=== PATIENT | male | born 1990 | race Caucasian/White ===

== ENCOUNTER 2016-12-22 15:20 | Emergency (ER) | payer OTHER ==
[~2016-12-22] VITALS: Ht 157.5 cm; Wt 31.8 kg
[2016-12-22 15:30] VITALS: BP 117/57
--- NOTE | 2016-12-22 17:19 | NUR ---
PT BIB MOTHER FOR EVALUATION OF CONGESTION SINCE TIS AM. HX CEREBRAL PALSY. DENIES N/V/D; SKIN IS PINK/WARM/DRY; AAOX4 WITH EVEN AND STEADY GAIT; LUNGS CLEAR BL; HR EVEN AND REGULAR; PT DENIES ANY FEVER, CP, OR SOB AT THIS TIME; PATIENT STATES PAIN OF 0/10 AT THIS TIME; VSS; PATIENT POSITIONED FOR COMFORT; HOB ELEVATED; BEDRAILS UP X2; BED DOWN. ER MD MADE AWARE OF PT STATUS.
--- NOTE | 2016-12-22 17:20 | NUR ---
PATIENT TAKEN TO BED#5 BY STAFF/MOTHER
--- NOTE | 2016-12-22 17:30 | NUR ---
DR MUKHERJEE AT BEDSIDE.
--- NOTE | 2016-12-22 17:47 | NUR ---
Patient discharged with v/s stable. Written and verbal after care instructions given and explained to mother. Mother verbalized understanding of instructions. Wheel Chair Assisted with by parent. All questions addressed prior to discharge. ID band removed.Mother advised to follow up with PMD. Opportunity to ask questions provided and answered.
[2016-12-22 17:48] VITALS: BP 117/57
== END 2016-12-22 17:47 | disposition home or self-care (01) ==
LOC: MED 15:20
DX: Z00.00 Encounter for general adult medical examination without abnormal findings (principal)
CPT/HCPCS: 71010; 99283

== ENCOUNTER 2017-03-13 05:12 | Emergency (ER) | payer OTHER ==
[~2017-03-13] VITALS: Ht 165.1 cm; Wt 40.8 kg
--- NOTE | 2017-03-13 05:12 | NUR ---
0506- PT MICHELLE ALS. TAKEN TO BED 10
[2017-03-13 05:14] VITALS: BP 85/58
--- NOTE | 2017-03-13 05:14 | NUR ---
Dr. Rain evaluating patient at bedside.
--- NOTE | 2017-03-13 05:14 | NUR ---
Respiratory Therapist at bedside for respiratory intervention.
--- NOTE | 2017-03-13 05:19 | NUR ---
PT BIBA BAGGED WITH 100% FI02, PLACED ON VENT AC, VT 300, PEEP+5, FI02 28%. NO RESP DISTRESS NOTED. SXN SML AMT OF THIN CREAM SECRETIONS FOR C/S. PT WITH PORTEX 7 TRACH, SECURED, PATENT.
[2017-03-13] MEDS ORDERED: NACL 0.9% 2,000 ML IV ONE (05:25)
--- NOTE | 2017-03-13 05:30 | NUR ---
26Y/M BIBA S/P SEIZURE. HX SEIZURES. PER EMR PT CAME FROM [facility] HAD 10 MIN UNWITNESSED SEIZURE. PT HAS TRACH AND IS ON VENT. PT HAS G TUBE. PER EMR FACILITY GAVE ATIVAN. PT APPEARS TO BE IN NO APPARENT DISTRESS AT THIS TIME, VSS, PT IN BED, ER MD AWARE OF PT STATUS. SKIN INTACT, SUSPECTED DEEP TISSUE INJURY TO SACRAL AREA PHOTO TAKEN.
[2017-03-13] MEDS ORDERED: MIDO10TA PEG (05:48)
[2017-03-13] MEDS ORDERED: LEVE1000 PEG (05:48)
[2017-03-13 05:51] LABS: BASOPHILS # (AUTO) 0.1 K/uL (0.00-0.22); BASOPHILS % (AUTO) 1.1 % (0.0-2.0); EOSINOPHILS # (AUTO) 0.1 K/uL (0-0.4); EOSINOPHILS % (AUTO) 1.6 % (0.0-4.0); HEMOGLOBIN 8.8 g/dL (12.0-18.0); LYMPHOCYTES # (AUTO) 0.9 K/uL (2.0-11.5); LYMPHOCYTES % (AUTO) 10.8 % (20.5-51.1); MEAN CORPUSCULAR HEMOGLOBIN 33 pg (27-31); MEAN CORPUSCULAR HGB CONC 33 g/dL (33-37); MEAN CORPUSCULAR VOLUME 100 fL (80-94); MONOCYTES # (AUTO) 0.8 K/uL (0.8-1.0); MONOCYTES % (AUTO) 8.9 % (1.7-9.3); NEUTROPHILS # (AUTO) 6.7 K/uL (1.8-7.7); NEUTROPHILS % (AUTO) 77.6 % (42.2-75.2); PLATELET COUNT (AUTO) 340 K/uL (140-450); RED BLOOD CELL COUNT(AUTO) 2.69 MIL/uL (4.20-6.10); WHITE BLOOD COUNT (AUTO) 8.6 K/uL (4.8-10.8)
[2017-03-13] MEDS ORDERED: ATI.5 PEG (05:59)
[2017-03-13] MEDS ORDERED: [UNRECOGNIZED DRUG - CODE] PO (05:59)
[2017-03-13] MEDS ORDERED: ASCO500T45 PEG (05:59)
[2017-03-13] MEDS ORDERED: VALP-22 PEG (05:59)
[2017-03-13] MEDS ORDERED: LOV40I SUBQ (05:59)
[2017-03-13] MEDS ORDERED: LANS15EC28 PEG (05:59)
[2017-03-13] MEDS ORDERED: DOCU-299 PEG (05:59)
[2017-03-13 06:10] LABS: ANION GAP 6.6 (8-16); CARBON DIOXIDE 34.4 mmol/L (21-32); CREATININE 0.6 mg/dL (0.7-1.3)
[2017-03-13 06:17] LABS: ALBUMIN 2.9 g/dL (3.4-5.0); TOTAL BILIRUBIN 0.2 mg/dL (0.0-1.0)
--- NOTE | 2017-03-13 06:27 | NUR ---
DR. NAGEL SPEAKING WITH FAMILY AT BEDSIDE
[2017-03-13 06:40] VITALS: BP 91/54
--- NOTE | 2017-03-13 06:40 | NUR ---
rec'd pt on carescape vent settings ac 10 vt 300 peep 5 fio2 28% alarms on and functioning properly, ambu bag at side of vent and vent is plugged into red outlet, b\s are coarse bilaterally, sxn pt small amt of thin cream color secretions, pt is trach with portex 7 and cuff pressure is 26 cm h20 and pt is sleeping with no signs of distress noted at this time family at bedside
--- NOTE | 2017-03-13 06:54 | NUR ---
PER FAMILY PT HAS 1-3 SEIZURES A DAY.
--- NOTE | 2017-03-13 07:10 | NUR ---
REPORT CALLED TO FACILITY THAT PT WILL BE D/C BACK W/ [facility] TRANSPORT ETA 30-45 MIN.
--- NOTE | 2017-03-13 07:19 | NUR ---
Pt report given to TREY. Transfer of care at this time.
--- NOTE | 2017-03-13 07:51 | NUR ---
PT TRANSFERRED TO [facility] VIA GURNEY BY EMS, VSS, REPORT GIVEN TO CHADWICK ADAMS FROM EMR, REPORTED TO FACITILY DONE BY CHADWICK PADRON
[2017-03-13 07:53] VITALS: BP 95/58
[2017-03-13 08:12] LABS: BILIRUBIN,URINE NEGATIVE (NEGATIVE); BLOOD, URINE NEGATIVE (NEGATIVE); COLOR,URINE YELLOW (YELLOW); LEUKOCYTE ESTERASE ,URINE NEGATIVE (NEGATIVE); NITRITE, URINE NEGATIVE (NEGATIVE); PH,URINE 6.5 (5.0-9.0); UGLUCOSE NEGATIVE (NEGATIVE)
[2017-03-13 08:21] LABS: APPEARANCE,URINE SLIGHTLY HAZY (CLEAR)
[2017-03-13 08:22] LABS: RBC,URINE NONE SEEN /HPF (0-5); WBC,URINE 0-5 (RARE) /HPF (0-5)
== END 2017-03-13 07:51 ==
LOC: MED 05:12
DX: R56.9 Unspecified convulsions (principal); G80.9 Cerebral palsy, unspecified; F79 Unspecified intellectual disabilities; Z93.0 Tracheostomy status; Z93.1 Gastrostomy status; Z79.899 Other long term (current) drug therapy; Z88.8 Allergy status to other drugs, medicaments and biological substances
CPT/HCPCS: 36415; 71010; 80053; 81001; 83605; 85025; 87040; 89220; 93005; 96360; 99285; Q0092

== ENCOUNTER 2017-12-23 21:03 | Inpatient (IN) | payer OTHER ==
[~2017-12-23] VITALS: Ht 157.5 cm; Wt 38.6 kg
[~2017-12-23 21:03] MED LIST: ASCO500T45 PEG; ATI.5 PEG; DOCU-299 PEG; LANS15EC28 PEG; LEVE1000 PEG; LOV40I SUBQ; MIDO10TA PEG; VALP-22 PEG; [UNRECOGNIZED DRUG - CODE] PO
[2017-12-23 21:33] VITALS: BP 106/52
--- NOTE | 2017-12-23 21:36 | NUR ---
TO LOBBY VIA W/C, A/W BED, MANUELA FOX NOTED
[2017-12-23 22:35] LABS: HEMOGLOBIN 16.2 g/dL (12.0-18.0); MEAN CORPUSCULAR HEMOGLOBIN 34 pg (27-31); MEAN CORPUSCULAR HGB CONC 33 g/dL (33-37); MEAN CORPUSCULAR VOLUME 102.4 fL (80-94); RED BLOOD CELL COUNT(AUTO) 4.79 MIL/uL (4.20-6.10); WHITE BLOOD COUNT (AUTO) 19.5 K/uL (4.8-10.8)
[2017-12-23 22:36] LABS: ALBUMIN 3.3 g/dL (3.4-5.0); ANION GAP 11.8 (8-16); CARBON DIOXIDE 28.7 mmol/L (21-32); CREATININE 0.8 mg/dL (0.7-1.3); PLATELET COUNT (AUTO) 174 K/uL (140-450); POTASSIUM 3.5 mmol/L (3.5-5.1); RED CELL DISTRIBUTION WIDTH 15.2 % (11.6-13.7); TOTAL BILIRUBIN 0.5 mg/dL (0.0-1.0)
[2017-12-23 22:37] LABS: LYMPHOCYTES % (MANUAL) 11 % (20-46); MONOCYTES % (MANUAL) 8 % (5-12)
--- NOTE | 2017-12-23 23:35 | NUR ---
27 yo male with C/O abdominal pain today. Family reports patient has been acting different since last Wednesday. Pt without fever. Pt with vomiting. Pt without diarrhea. Pt without chest pain. SKIN IS INTACT, PINK/WARM/DRY; AAOX4, PERRL, WITH EVEN AND STEADY GAIT; LUNGS CLEAR BL, BREATHING UNLABORED; HR EVEN AND REGULAR, BL PERIPHERAL PULSES PRESENT; BS ACTIVE X4, NO TENDERNESS TO PALPATION, NO HEPATOSPLENOMEGALLY PALPATED, RESONANT TO PERCUSSION; PT DENIES ANY FEVER, CP, SOB, OR COUGH AT THIS TIME; PT STATES 5/10 PAIN AT THIS TIME; VSS; PATIENT POSITIONED FOR COMFORT; HOB ELEVATED; BEDRAILS UP X2; BED DOWN.
--- NOTE | 2017-12-23 23:35 | NUR ---
PATIENT TO ER BED 5.
--- NOTE | 2017-12-23 23:40 | NUR ---
PT HAS G-TUBE IN PLACE, PATENT AND INTACT
--- NOTE | 2017-12-23 23:41 | NUR ---
DR. FERMIN MADE AWARE OF PTS CURRENT STATUS
--- NOTE | 2017-12-24 00:30 | NUR ---
PT RESTING COMFORTABLY IN BED. NO S/S OF DISTRESS NOTED
[2017-12-24] MEDS ORDERED: NACL 0.9% 1,000 ML IV ONE (01:30)
[2017-12-24] MEDS ORDERED: KETOROLAC 30 MG/ML VIAL IVP ONE (02:30)
--- NOTE | 2017-12-24 02:30 | NUR ---
PT RESTING COMFORTABLY IN BED. NO S/S OF DISTRESS NOTED
[2017-12-24] MEDS: NACL 0.9% 1,000 ML IV SCH ×3 (03:08→20:38)
[2017-12-24] MEDS ORDERED: HYDROcodone/APAP 5/325 MG 1 TAB TAB PO PRN (03:10)
[2017-12-24] MEDS ORDERED: DOCUSATE SODIUM 100 MG GELCAP PO PRN (03:10)
[2017-12-24] MEDS ORDERED: ACETAMINOPHEN 325 MG TAB PO PRN (03:10)
[2017-12-24] MEDS ORDERED: ONDANSETRON 4 MG/2 ML VIAL IM/IVP PRN (03:10)
--- NOTE | 2017-12-24 03:26 | NUR ---
DR. MCKEON AT BEDSIDE EVALUATING
[2017-12-24 03:40] VITALS: BP 111/64
[2017-12-24] MEDS ORDERED: DOCUSATE 100 MG/10 ML UDC GT PRN (03:40)
[2017-12-24] MEDS ORDERED: HYDROcodone/APAP 5/325 MG 1 TAB TAB GT PRN (03:40)
[2017-12-24] MEDS ORDERED: LORazepam 2 MG/ML VIAL IVP PRN (03:40)
--- NOTE | 2017-12-24 03:40 | NUR ---
RECEIVED BEDSIDE REPORT FROM FISH HOUSEKEEPER RN, IV IN LEFT HAND 24 G, PATENT AND INTACT. STARTED 1/2 NS AT 150 ML/HR. G-TUBE RESIDUALS AT 175, DR MCKEON AWARE, WILL HOLD TUBE FEEDING, ALL SAFETY PRECAUTIONS MET, V/S TAKEN ALL WITHIN BASELINE, WILL CONTINUE TO MONITOR.
[2017-12-24] MEDS ORDERED: RANI15SY PO (03:48)
[2017-12-24] MEDS ORDERED: KEP500L GT (03:48)
[2017-12-24] MEDS ORDERED: VALP-22 PEG (03:48)
--- NOTE | 2017-12-24 04:00 | NUR ---
Patient will be admitted to care of DR. PARKER. Admited to TELE. Will go to room 106B. Belongings list completed. Report to TONJA GENAO.
[2017-12-24 04:13] LABS: MAGNESIUM 1.6 mg/dL (1.8-2.4)
--- NOTE | 2017-12-24 07:25 | NUR ---
ENDORSED PT TO DAY SHIFT NURSE PT STABLE.
--- NOTE | 2017-12-24 07:26 | NUR ---
RECEIVED BEDSIDE REPORT FROM RECORDS MANAGEMENT DIRECTOR NURSE. PATIENT IS SLEEPING. NO SIGNS OF DISTRESS ON ROOM AIR. PATIENT IS APHASIC. PATIENT IS BEDBOUND. HE HAS A SCRATCH ON HIS L EAR. GTUBE IN PLACE, NO FEEDING D/T RECORDS MANAGEMENT DIRECTOR RESIDUAL OF 175ML, GTUBE IS CLEAN, DRY AND INTACT. TELE MONITOR IN PLACE. L HAND 24G INFUSING NS AT 150. CLEAN, DRY AND INTACT. ALLERGY BAND IN PLACE. SEIZURE PRECAUTIONS, FALL PRECAUTIONS, AND ASP PRECAUTIONS. BED IN LOW POSITION. CALL LIGHT WITHIN REACH. WILL CONTINUE TO MONITOR THE PATIENT
--- NOTE | 2017-12-24 07:50 | NUR ---
COSTUMER ASSISTANT AT BEDSIDE. HELPED HER ASSIST THE PATIENT IN TURNING. WILL CONTINUE TO MONITOR
[2017-12-24 08:00] VITALS: BP 115/71
--- NOTE | 2017-12-24 08:38 | NUR ---
PATIENT HAS BEEN SCREENED AND CATEGORIZED HIGH NUTRITION RISK. PATIENT WILL BE SEEN WITHIN 1-2 DAYS OF ADMISSION. 12/24/17 12/25/[address]
[2017-12-24] MEDS ORDERED: RANITIDINE HCL GT SCH (09:00)
[2017-12-24] MEDS: PIPER/TAZO 3.375GM/D5W PREMIX 50 ML IV SCH ×3 (09:03→19:15)
[2017-12-24] MEDS: levETIRAcetam 100 MG/ML ORASYR GT SCH ×2 (09:05→20:21)
[2017-12-24] MEDS: VALPROIC ACID 250 MG/5 ML UDC PEG SCH ×2 (09:06→20:21)
[2017-12-24] MEDS: LACTOBACILLUS RHAMNOSUS GG 1 EACH CAP PO SCH (09:06)
[2017-12-24] MEDS: ASCORBIC ACID 500 MG/5 ML ORASYR PEG SCH (09:14)
[2017-12-24] MEDS: FAMOTIDINE 20 MG TAB PO SCH ×2 (09:14→20:20)
[2017-12-24] MEDS: KETOROLAC 15 MG/ML VIAL IVP PRN (09:15)
--- NOTE | 2017-12-24 09:20 | NUR ---
ADMINISTERED MEDS. PATIENT TOLERATED WELL. WILL CONTINUE TO MONITOR THE PATIENT. BED IN LOW POSITION, BED ALARM IS ON. PATIENT HAS A FLACC 2. ADMINISTERED PRN PAIN MED.
--- NOTE | 2017-12-24 11:12 | NUR ---
PATIENT IS SLEEPING. NO SIGNS OF DISTRESS. WILL CONTINUE TO MONITOR THE PATIENT
--- NOTE | 2017-12-24 11:28 | NUR ---
CM NOTE INITIAL REVIEW FAXED TO [facility] [phone] # [phone]
[2017-12-24 12:00] VITALS: BP 122/68
--- NOTE | 2017-12-24 12:20 | NUR ---
ADMINISTERED MEDS AND IVF. PATIENT TOLERATING WELL. IV IS CLEAN, DRY AND INTACT. NO SIGNS OF DISTRESS ON ROOM AIR. WILL CONTINUE TO MONITOR THE PATIENT
[2017-12-24 13:22] LABS: CHOL/HDL RATIO 3.3 (1-4.5)
[2017-12-24 13:30] LABS: PHOSPHORUS 3.9 mg/dL (2.5-4.9); THYROID STIMULATING HORMONE 1.16 uIU/mL (0.34-3.74)
[2017-12-24 13:33] LABS: PROTHROMBIN TIME 12.8 secs (10.8-13.4)
--- NOTE | 2017-12-24 14:03 | NUR ---
PATIENT IS SLEEPING. NO SIGNS OF DISTRESS. WILL CONTINUE TO MONITOR THE PATIENT
[2017-12-24 14:15] LABS: APPEARANCE,URINE CLEAR (CLEAR); BILIRUBIN,URINE NEGATIVE (NEGATIVE); BLOOD, URINE NEGATIVE (NEGATIVE); COLOR,URINE YELLOW (YELLOW); LEUKOCYTE ESTERASE ,URINE NEGATIVE (NEGATIVE); NITRITE, URINE NEGATIVE (NEGATIVE); PH,URINE 6.5 (5.0-9.0); UGLUCOSE NEGATIVE (NEGATIVE)
[2017-12-24 14:32] LABS: BARBITURATE, URINE NEG. ng/ml (NEG <=200); BENZODIAZEPINE, URINE NEG. ng/mL (NEG <=200); CANNABINOID, URINE NEG. ng/mL (NEG <=50); COCAINE, URINE NEG. ng/mL (NEG <=300); OPIATE, URINE NEG. ng/mL (NEG <=2000); PHENCYCLIDINE SCREEN,URINE NEG. ng/mL (NEG <=25)
--- NOTE | 2017-12-24 15:04 | NUR ---
12/24/17 RD INITIAL ASSESSMENT COMPLETED PLEASE REFER TO NUTRITION ASSESSMENT UNDER CARE ACTIVITY FOR ESTIMATED NUTRITIONAL NEEDS. 1. CONTINUE NPO MEDICALLY APPROPRIATE 2. IF/WHEN PATIENT IS MEDICALLY STABLE CONSIDER IMPLEMENTING TUBE FEEDING WITH JEVITY @50 ML/HR GOAL RATE. FREE WATER FLUSH 80 ML Q4H. -THIS WILL PROVIDE 1200 ML IN VOLUME, 1440 KCAL, AND 100 GM OF PROTEIN, WHICH MEETS 100% OF ESTIMATED KCAL AND PROTEIN NEEDS. 3. RD TO FOLLOW-UP 2-3 DAYS, HIGH RISK ALFA SAENZ RD
--- NOTE | 2017-12-24 15:41 | NUR ---
PATIENT SCRATCHED SIDE OF HIS NOSE. DRY BLOOD IS NOTED. EDUCATED THE PATIENT ON THE IMPORTANCE OF NOT SCRATCHING. PATIENT UNABLE TO VERBALIZED UNDERSTANDING. HE IS APHASIC
[2017-12-24] MEDS ORDERED: MAG SULF 2000 MG/WATER PREMIX 50 ML IV ONE (15:45)
[2017-12-24 16:00] VITALS: BP 113/72
[2017-12-24] MEDS: MAGNESIUM SULFATE 1GM in DEXTROSE 5% 100 ML PREMIX IV SCH ×2 (16:27→17:39)
--- NOTE | 2017-12-24 16:30 | NUR ---
PATIENT SITTING IN BED. NO SIGNS OF DISTRESS. MOM AT BEDSIDE. ADMINISTERED ORDERED MAGNESIUM. IV IS CLEAN, DRY AND INTACT. WILL CONTINUE TO MONITOR THE PATIENT
--- NOTE | 2017-12-24 17:40 | NUR ---
PATIENT IS SLEEPING. NO SIGNS OF DISTRESS. ADMINISTERED SECOND BAG OF MAGNESIUM. BED IN LOW POSITION, MOM AT BEDSIDE. WILL CONTINUE TO MONITOR
--- NOTE | 2017-12-24 19:15 | NUR ---
GAVE BEDSIDE REPORT TO LOCKS INSPECTOR NURSE. ENDORSED PATIENT IN STABLE CONDITION
--- NOTE | 2017-12-24 19:15 | NUR ---
RECEIVED REPORT FROM DAY SHIFT NURSE AT PT BEDSIDE. PT IN STABLE CONDITION. FAMILY IS AT BEDSIDE. PT IS AWAKE, A/O X1 AND IS APHASIC. IV ACCESS IN L HAND 24 G WITH IVF RUNNING PER MD ORDERS. SMALL SCAB NOTED ON L EAR. FLACC-O. IV IS PATENT AND INTACT. SEIZURE PRECAUTIONS IN PLACE. BED IS LOCKED, LOW POSITION WITH SIDE RAILS UP X2. CALL LIGHT IS WITHIN REACH. BOARD UPDATED. WILL CONTINUE TO MONITOR PT.
[2017-12-24 20:00] VITALS: BP 114/71
--- NOTE | 2017-12-24 20:21 | NUR ---
ADMINISTERED SCHEDULED MEDICATIONS. PT TOLERATED WELL. WILL CONTINUE TO MONITOR.
--- NOTE | 2017-12-24 20:38 | NUR ---
STARTED NEW BAG OF IVF. WILL CONTINUE TO MONITOR PT.
--- NOTE | 2017-12-24 22:37 | NUR ---
DR. MATTA HERE TO SEE PT. PT RESTING COMFORTABLY IN BED. WILL CONTINUE TO MONITOR.
[2017-12-25] VITALS: BP 129/81
--- NOTE | 2017-12-25 00:36 | NUR ---
PT ASLEEP IN BED. NO SIGNS OR SYMPTOMS OF DISTRESS. WILL CONTINUE TO MONITOR.
[2017-12-25] MEDS: ACETAMINOPHEN 325 MG TAB GT PRN ×2 (03:27→18:34)
--- NOTE | 2017-12-25 03:27 | NUR ---
PT TEMP 100.7. TYLENOL GIVEN. WILL CONTINUE TO MONITOR.
[2017-12-25 04:00] VITALS: BP 120/80
--- NOTE | 2017-12-25 04:17 | NUR ---
PT HR ELEVATED, 120'S, INFORMED DR. MCKEON. WILL ADMINISTER PAIN MEDICATION AND CONTINUE TO MONITOR.
[2017-12-25] MEDS: NACL 0.9% 1,000 ML IV SCH (04:19)
[2017-12-25] MEDS: MORPHINE SULFATE 2 MG/ML SYR IVP PRN ×2 (04:24→16:00)
--- NOTE | 2017-12-25 04:24 | NUR ---
PT HAS FLACC-5 PER MD REQUEST, MORPHINE GIVEN. WILL CONTINUE TO MONITOR PT.
[2017-12-25 06:21] LABS: FOLIC ACID > 20.00 ng/mL (>3.0)
--- NOTE | 2017-12-25 07:13 | NUR ---
ENDORSED PT TO DAY SHIFT NURSE FOR CONTINUITY OF CARE. PT IN STABLE CONDITION.
--- NOTE | 2017-12-25 07:15 | NUR ---
RECEIVE REPORT FROM CLINICAL TECHNOLOGIST NURSE. PT IS AWAKE, RESTING IN BED, APHASIC, ON ROOM AIR, NO S/S OF RESPIRATORY DISTRESS OR DISCOMFORT NOTED AT THIS TIME, SKIN IS INTACT, PT HAS G-TUBE PLACEMENT, FEEDING ON HOLD AT THIS TIME, IV IS ON THE LEFT HAND, PATENT, INTACT, FLUSHING WELL, DISCUSSED PLAN OF CARE WITH PT, PT UNABLE TO COMPREHEND, SAFETY/FALL/SEIZURE PRECAUTIONS ARE IN PLACE, CALL LIGHT IS WITHIN REACH, WILL CONTINUE TO MONITOR.
[2017-12-25 07:40] LABS: BASOPHILS % (AUTO) 0.1 % (0.0-2.0); EOSINOPHILS % (AUTO) 0.2 % (0.0-4.0); HEMATOCRIT 42.7 % (36-52); HEMOGLOBIN 14.2 g/dL (12.0-18.0); LYMPHOCYTES # (AUTO) 1.2 K/uL (2.0-11.5); LYMPHOCYTES % (AUTO) 9.1 % (20.5-51.1); MEAN CORPUSCULAR HEMOGLOBIN 34 pg (27-31); MEAN CORPUSCULAR HGB CONC 33 g/dL (33-37); MEAN CORPUSCULAR VOLUME 101.7 fL (80-94); MONOCYTES # (AUTO) 1.5 K/uL (0.8-1.0); MONOCYTES % (AUTO) 11.7 % (1.7-9.3); NEUTROPHILS # (AUTO) 10.2 K/uL (1.8-7.7); NEUTROPHILS % (AUTO) 78.9 % (42.2-75.2); PLATELET COUNT (AUTO) 91 K/uL (140-450); RED CELL DISTRIBUTION WIDTH 16.2 % (11.6-13.7); WHITE BLOOD COUNT (AUTO) 12.9 K/uL (4.8-10.8)
[2017-12-25 07:48] LABS: ALBUMIN 2.3 g/dL (3.4-5.0); ANION GAP 10.4 (8-16); CARBON DIOXIDE 24.1 mmol/L (21-32); CREATININE 0.6 mg/dL (0.7-1.3); MAGNESIUM 2.1 mg/dL (1.8-2.4); PHOSPHORUS 2.9 mg/dL (2.5-4.9); POTASSIUM 3.5 mmol/L (3.5-5.1); TOTAL BILIRUBIN 0.5 mg/dL (0.0-1.0)
[2017-12-25 08:00] VITALS: BP 125/75
[2017-12-25] MEDS ORDERED: POTASSIUM CHLORIDE 20% 40 MEQ/15 ML UDC GT SCH (09:06)
[2017-12-25] MEDS: DEXT 5% /NACL 0.9% 1,000 ML IV SCH ×2 (09:10→20:30)
--- NOTE | 2017-12-25 09:13 | NUR ---
SPOKE TO DR. RICAROD. I ASKED HIM IF HE COULD CHANGE THE PATIENT'S FLUIDS BECAUSE THE PATIENT WAS NPO AND TUBE FEEDING WAS ON HOLD. PER DR. RICARDO HE WILL PUT IN AN ORDER FOR D5 NS.
[2017-12-25] MEDS: ASCORBIC ACID 500 MG/5 ML ORASYR PEG SCH (10:29)
[2017-12-25] MEDS: VALPROIC ACID 250 MG/5 ML UDC PEG SCH ×2 (10:30→20:36)
[2017-12-25] MEDS: levETIRAcetam 100 MG/ML ORASYR GT SCH ×2 (10:31→20:36)
[2017-12-25] MEDS: LACTOBACILLUS RHAMNOSUS GG 1 EACH CAP PO SCH (10:32)
[2017-12-25] MEDS: SENNA 8.6 MG TAB PO SCH ×3 (10:32→16:49)
[2017-12-25] MEDS: FAMOTIDINE 20 MG TAB PO SCH ×2 (10:32→20:36)
--- NOTE | 2017-12-25 10:48 | NUR ---
HEPARIN HELD PT PLATELETS LOW 91.
[2017-12-25 12:00] VITALS: BP 135/84
--- NOTE | 2017-12-25 15:55 | NUR ---
SPOKE TO DR. COLÓN I LET HIM KNOW THE PATIENT HR WAS TRENDING UP, CURRENT HR IS 144, TEMP IS 99.9. PER DR. COLÓN GIVE PATIENT PAIN MEDICATION.
[2017-12-25 16:00] VITALS: BP 129/86
--- NOTE | 2017-12-25 18:36 | NUR ---
RECHECKED PT TEMPERATURE, CURRENT TEMP 100.5. WILL MEDICATE WITH TYLENOL AT THIS TIME.
--- NOTE | 2017-12-25 19:15 | NUR ---
ENDORSED PT TO FIELD SERVICER NURSE FOR CONTINUITY OF CARE. PT STABLE AT THIS TIME.
--- NOTE | 2017-12-25 19:16 | NUR ---
RECEIVED REPORT FROM DAY SHIFT NURSE. PT SLEEPING. PT'S MOM AT BEDSIDE. NO S/S OF PAIN OR SOB. ON ROOM AIR. G-TUBE IN PLACE. IV TO LEFT WRIST #24G, D5NS AT 100 ML, INFUSING WELL. DISCUSSED PLAN OF CARE, PT'S MOM VERBALIZED UNDERSTANDING. FALL AND SEIZURE PRECAUTION IN PLACE.
[2017-12-25 20:00] VITALS: BP 113/80
--- NOTE | 2017-12-25 21:00 | NUR ---
DR. MOSS MADE AWARE OF PT'S PLATELET COUNT 91 AND SHE ORDERED TO HOLD HEPARIN 5000 UNITS SUBQ. ALSO MADE OF PT'S HEART RATE 125, TRENDING DOWN.
--- NOTE | 2017-12-25 22:30 | NUR ---
PT TURNED AND REPOSITIONED Q2HRS. PT KEPT DRY AND COMFORTABLE.
[2017-12-26] VITALS: BP 124/69
[2017-12-26] MEDS: MORPHINE SULFATE 2 MG/ML SYR IVP PRN (01:10)
--- NOTE | 2017-12-26 01:10 | NUR ---
PT'S HEART RATE 133. PT WAS MOANING. DR. MOSS MADE AWARE. ORDERED TO GIVE MORPHINE 1 MG IVP.
--- NOTE | 2017-12-26 02:00 | NUR ---
IV SITE TO LEFT WRIST LEAKING. DISCONTINUED IV LINE. CANNULA INTACT. INSERTED NEW IV LINE TO LEFT FA #24G. GOOD FLUSH AND BLOOD RETURN. PT TOLERATED PROCEDURE WELL.
--- NOTE | 2017-12-26 03:00 | NUR ---
DR. MOSS MADE AWARE OF PT'S HR 136. PER , SHE WILL ORDER EKG.
[2017-12-26] MEDS: ACETAMINOPHEN 325 MG TAB GT PRN (03:41)
--- NOTE | 2017-12-26 03:41 | NUR ---
PT'S TEMP 100.5. TYLENOL 65O MG VIA G-TUBE GIVEN. NO S/S OF PAIN OR SOB.
[2017-12-26 04:00] VITALS: BP 121/83
--- NOTE | 2017-12-26 04:30 | NUR ---
V/S CHECKED. BP 121/83, HR 135, RR20, TEMP 99.1 O2 SAT 90%. ADMINISTERED O2 AT 2 L/MIN VIA NC, O2 SAT 96%. DR. MOSS MADE AWARE OF PT'S V/S. WILL SEE PT.
--- NOTE | 2017-12-26 04:40 | NUR ---
DR. MOSS IN THE ROOM TO SEE PT. PER , SHE WILL ORDER ATIVAN.
[2017-12-26] MEDS ORDERED: LORazepam 2 MG/ML VIAL IVP PRN (04:50)
--- NOTE | 2017-12-26 05:30 | NUR ---
PT SLEEPING. NO S/S OF PAIN OR SOB. AFEBRILE. SAFETY, SEIZURE AND ASPIRATION PRECAUTION IN PLACE.
[2017-12-26] MEDS: DEXT 5% /NACL 0.9% 1,000 ML IV SCH ×3 (06:04→19:26)
[2017-12-26 07:05] LABS: EOSINOPHILS % (AUTO) 0.1 % (0.0-4.0); HEMATOCRIT 40.9 % (36-52); HEMOGLOBIN 13.9 g/dL (12.0-18.0); LYMPHOCYTES # (AUTO) 1.3 K/uL (2.0-11.5); LYMPHOCYTES % (AUTO) 8.3 % (20.5-51.1); MEAN CORPUSCULAR HEMOGLOBIN 34 pg (27-31); MEAN CORPUSCULAR HGB CONC 34 g/dL (33-37); MEAN CORPUSCULAR VOLUME 101.1 fL (80-94); MONOCYTES # (AUTO) 2.5 K/uL (0.8-1.0); MONOCYTES % (AUTO) 16.6 % (1.7-9.3); NEUTROPHILS # (AUTO) 11.4 K/uL (1.8-7.7); PLATELET COUNT (AUTO) 95 K/uL (140-450); RED BLOOD CELL COUNT(AUTO) 4.04 MIL/uL (4.20-6.10); RED CELL DISTRIBUTION WIDTH 15.8 % (11.6-13.7); WHITE BLOOD COUNT (AUTO) 15.2 K/uL (4.8-10.8)
--- NOTE | 2017-12-26 07:05 | NUR ---
ENDORSED PT TO DAY SHIFT NURSE. PT IN STABLE CONDITION.
--- NOTE | 2017-12-26 07:10 | NUR ---
RECEIVE REPORT FROM DIESEL ENGINE I PIPE FITTER NURSE. PT IS AWAKE, RESTING IN BED, APHASIC, ON ROOM AIR, NO S/S OF RESPIRATORY DISTRESS OR DISCOMFORT NOTED AT THIS TIME, SKIN IS INTACT, PT HAS G-TUBE PLACEMENT, FEEDING ON HOLD AT THIS TIME, IV IS ON THE LEFT FA, #24, PATENT, INTACT, FLUSHING WELL, DISCUSSED PLAN OF CARE WITH PT, PT UNABLE TO COMPREHEND, SAFETY/FALL/SEIZURE PRECAUTIONS ARE IN PLACE, CALL LIGHT IS WITHIN REACH, WILL CONTINUE TO MONITOR.
[2017-12-26 07:29] LABS: MAGNESIUM 1.5 mg/dL (1.8-2.4)
[2017-12-26 07:33] LABS: ANION GAP 10.8 (8-16); CARBON DIOXIDE 25.1 mmol/L (21-32); CREATININE 0.6 mg/dL (0.7-1.3)
[2017-12-26 07:39] LABS: POTASSIUM 2.9 mmol/L (3.5-5.1)
[2017-12-26 08:00] VITALS: BP 121/84
[2017-12-26] MEDS ORDERED: NACL 0.9% 500 ML IV SCH (08:00)
[2017-12-26] MEDS: LACTOBACILLUS RHAMNOSUS GG 1 EACH CAP PO SCH (08:06)
[2017-12-26] MEDS: FAMOTIDINE 20 MG TAB PO SCH (08:06)
[2017-12-26] MEDS: SENNA 8.6 MG TAB PO SCH ×3 (08:07→16:21)
[2017-12-26] MEDS: VALPROIC ACID 250 MG/5 ML UDC PEG SCH (08:07)
[2017-12-26] MEDS: ASCORBIC ACID 500 MG/5 ML ORASYR PEG SCH (08:08)
[2017-12-26] MEDS: levETIRAcetam 100 MG/ML ORASYR GT SCH ×2 (08:08→20:40)
[2017-12-26] MEDS: POTASSIUM CHLORIDE 20% 40 MEQ/15 ML UDC GT SCH (08:09)
--- NOTE | 2017-12-26 08:09 | NUR ---
DUE MEDICATIONS GIVEN, PT TOLERATED WELL, NO S/S OF DISTRESS OR DISCOMFORT NOTED, CALL LIGHT WITHIN REACH, WILL CONTINUE TO MONITOR.
[2017-12-26] MEDS ORDERED: MAG SULF 2000 MG/WATER PREMIX 50 ML IV ONE (08:35)
[2017-12-26] MEDS ORDERED: KCL 20 MEQ/WATER INJ PREMIX 200 ML IV SCH (09:00)
[2017-12-26] MEDS: METOPROLOL 25 MG TAB PO SCH ×2 (09:40→21:00)
[2017-12-26] MEDS: SODIUM PHOS / POTASSIUM PHOS 1 PKT PDR PO SCH ×2 (09:41→20:41)
--- NOTE | 2017-12-26 11:30 | NUR ---
DR. BAZAN (NATURAL GAS BASIS TRADER) HERE TO SEE PATIENT.
--- NOTE | 2017-12-26 11:47 | NUR ---
500ML BOLUS COMPLETED AT THIS TIME. PT TOLERATED WELL, WILL CONTINUE TO MONITOR.
[2017-12-26 12:00] VITALS: BP 106/80
[2017-12-26] MEDS: MAGNESIUM SULFATE 1GM in DEXTROSE 5% 100 ML PREMIX IV SCH ×2 (13:54→15:11)
--- NOTE | 2017-12-26 15:30 | NUR ---
NO RESIDUAL NOTED FROM G TUBE. TUBE FEEDING STARTED AT THIS TIME, STARTING AT 20ML/HR WITH 50ML OF H2O FLUSH Q6H.
[2017-12-26 16:00] VITALS: BP 148/95
--- NOTE | 2017-12-26 16:00 | NUR ---
PT HAD A SECOND BOWL MOVEMENT, PT CLEANED AND CHUCKS CHANGED. ALL NEEDS ARE MET AT THIS TIME. FAMILY MEMBER IS AT BEDSIDE, CALL LIGHT IS WITHIN REACH.
[2017-12-26 17:09] LABS: ANION GAP 13.1 (8-16); CARBON DIOXIDE 22.5 mmol/L (21-32); CREATININE 0.5 mg/dL (0.7-1.3); POTASSIUM 3.6 mmol/L (3.5-5.1)
[2017-12-26] MEDS: KETOROLAC 15 MG/ML VIAL IVP PRN (17:12)
--- NOTE | 2017-12-26 17:29 | NUR ---
CHECKED PATIENT'S TEMPORAL TEMPERATURE, CURRENT TEMP 101.1
[2017-12-26] MEDS: ACETAMINOPHEN 650 MG/20.3 ML UDC GT PRN (17:32)
--- NOTE | 2017-12-26 18:30 | NUR ---
RECHECKED PATIENT'S TEMPORAL TEMPERATURE, CURRENT TEMP. 98.2.
--- NOTE | 2017-12-26 19:20 | NUR ---
ENDORSED PT TO COSMETOLOGY INSTRUCTOR NURSE FOR CONTINUITY OF CARE. PT STABLE AT THIS TIME. FAMILY MEMBER IS AT BEDSIDE.
--- NOTE | 2017-12-26 19:21 | NUR ---
RECEIVED REPORT FROM DAY SHIFT NURSE. PT LYING IN BED, AWAKE. PT'S MOM AT BEDSIDE. NO S/S OF PAIN OR SOB. PT IS ON O2 AT 2L/MIN VIA NC. G-TUBE IN PLACE WITH FEEDING VITAL 1.2 AT 20 ML/HR, INFUSING WELL. SKIN INTACT. IV TO LEFT FA #24G, D5NS AT 150 ML, INFUSING WELL. DISCUSSED PLAN OF CARE, PT'S MOM VERBALIZED UNDERSTANDING. FALL, ASPIRATION AND SEIZURE PRECAUTION IN PLACE
[2017-12-26 20:00] VITALS: BP 103/62
[2017-12-26] MEDS: TOPIRAMATE 100 MG TAB PO SCH (20:40)
[2017-12-26] MEDS: PANTOPRAZOLE 40 MG INJ VIAL IVP SCH (20:41)
--- NOTE | 2017-12-26 20:45 | NUR ---
G-TUBE RESIDUAL 30 ML. DUE MEDS GIVEN. PT TOLERATED WELL.
--- NOTE | 2017-12-26 21:00 | NUR ---
PT'S PLATELET COUNT 95, DR. MOSS MADE AWARE AND ORDER TO HOLD HEPARIN 5000 UNITS SUBQ FOR 2100 DOSE. MADE AWARE ALSO OF PT'S BP 103/62 AND ORDERED TO HOLD LOPRESSOR 12.5 MG TAB FOR 2100 DOSE.
--- NOTE | 2017-12-26 23:45 | NUR ---
PT HAD WATERY STOOL X2. DR. MOSS MADE AWARE.
[2017-12-27] VITALS: BP 133/103
--- NOTE | 2017-12-27 | NUR ---
RECEIVED REPORT FOR PT FROM CHADWICK MANCINI. PT IS NONVERBAL ON O2 VIA NC. ON TUBE FEEDING. HEART RATE ELEVATED, OTHER VITAL SIGNS WITHIN NORMAL LIMITS. PT STABLE, NO SIGNS OF DISTRESS NOTED AT THIS TIME. BED IN LOWEST POSITION, BED ALARM ON. CALL LIGHT WITHIN REACH, WILL CONTINUE TO MONITOR.
--- NOTE | 2017-12-27 00:30 | NUR ---
ENDORSED PT TO OTHER STRUCTURAL STEEL SHOP SUPERVISOR NURSE. PT IN STABLE CONDITION.
[2017-12-27] MEDS: DEXT 5% /NACL 0.9% 1,000 ML IV SCH ×3 (02:06→12:41)
[2017-12-27 04:00] VITALS: BP 119/82
[2017-12-27] MEDS: MORPHINE SULFATE 2 MG/ML SYR IVP PRN (04:17)
--- NOTE | 2017-12-27 04:17 | NUR ---
PT RESTLESS AND HEART RATE IS 150 IN MONITOR. SWEEPING COMPOUND BLENDER ADMINISTERED MORPHINE FOR PAIN. WILL REASSESS.
[2017-12-27] MEDS: METOPROLOL 25 MG TAB PO SCH ×2 (05:21→20:11)
--- NOTE | 2017-12-27 05:21 | NUR ---
HEART RATE STILL ELEVATED. SPOKE TO DR MOSS AND SHE SAID TO GIVE THE MORNING METOPROLOL RIGHT NOW. ADMINISTERED MEDICATION, PT TOLERATED WELL.
--- NOTE | 2017-12-27 07:25 | NUR ---
RECEIVED PATIENT REPORT AT BEDSIDE. PATIENT IS DROWSY BUT AROUSABLE. PATIENT ON 3L O2. NO S/S OF DISTRESS. G-TUBE IN PLACE. PATIENT ON TELE MONITORING. FALL PRECAUTIONS IN PLACE. WILL CONTINUE TO MONITOR
--- NOTE | 2017-12-27 07:41 | NUR ---
ENDORSED PT TO DAY SHIFT RN FOR CONTINUITY OF CARE, PT IN STABLE CONDITION.
[2017-12-27 08:52] VITALS: BP 106/65
[2017-12-27] MEDS: POTASSIUM CHLORIDE 20% 40 MEQ/15 ML UDC GT SCH (08:58)
[2017-12-27] MEDS: ASCORBIC ACID 500 MG/5 ML ORASYR PEG SCH (08:58)
[2017-12-27] MEDS: SODIUM PHOS / POTASSIUM PHOS 1 PKT PDR PO SCH (08:58)
[2017-12-27] MEDS: LACTOBACILLUS RHAMNOSUS GG 1 EACH CAP PO SCH (08:59)
[2017-12-27] MEDS: TOPIRAMATE 100 MG TAB PO SCH ×2 (08:59→20:10)
[2017-12-27] MEDS: PANTOPRAZOLE 40 MG INJ VIAL IVP SCH ×2 (08:59→20:11)
[2017-12-27] MEDS: levETIRAcetam 100 MG/ML ORASYR GT SCH ×2 (08:59→20:10)
--- NOTE | 2017-12-27 08:59 | NUR ---
ADMINISTERED SCHEDULED MEDS VIA [employer]. 10MLS RESIDUAL NOTED. NO S/S OF DISTRESS.
[2017-12-27] MEDS ORDERED: POTASSIUM CHLORIDE 20% 40 MEQ/15 ML UDC GT SCH ×2 (09:00→13:01)
[2017-12-27] MEDS: SENNA 8.6 MG TAB PO SCH ×2 (09:00→13:00)
[2017-12-27 10:15] LABS: BASOPHILS % (AUTO) 0.1 % (0.0-2.0); EOSINOPHILS % (AUTO) 0.4 % (0.0-4.0); HEMATOCRIT 39.9 % (36-52); HEMOGLOBIN 13.3 g/dL (12.0-18.0); LYMPHOCYTES # (AUTO) 1.6 K/uL (2.0-11.5); LYMPHOCYTES % (AUTO) 14.4 % (20.5-51.1); MEAN CORPUSCULAR HEMOGLOBIN 34 pg (27-31); MEAN CORPUSCULAR HGB CONC 33 g/dL (33-37); MONOCYTES # (AUTO) 2.1 K/uL (0.8-1.0); NEUTROPHILS # (AUTO) 7.5 K/uL (1.8-7.7); NEUTROPHILS % (AUTO) 66.1 % (42.2-75.2); PLATELET COUNT (AUTO) 96 K/uL (140-450); RED BLOOD CELL COUNT(AUTO) 3.91 MIL/uL (4.20-6.10); RED CELL DISTRIBUTION WIDTH 15.9 % (11.6-13.7); WHITE BLOOD COUNT (AUTO) 11.3 K/uL (4.8-10.8)
[2017-12-27 10:31] LABS: ANION GAP 11.6 (8-16); CARBON DIOXIDE 18.8 mmol/L (21-32); CREATININE 0.6 mg/dL (0.7-1.3); POTASSIUM 3.4 mmol/L (3.5-5.1)
[2017-12-27 11:20] LABS: MAGNESIUM 1.8 mg/dL (1.8-2.4)
[2017-12-27 11:26] LABS: PHOSPHORUS 0.9 mg/dL (2.5-4.9)
[2017-12-27 12:00] VITALS: BP 115/73
--- NOTE | 2017-12-27 12:00 | NUR ---
CM NOTE PER [facility] JUDY YU PH# [phone] SEND REVIEWS TO BOTH [facility] AND [facility] BECAUSE ITS A SHARED RISK. REVIEWS FAXED TO [facility] [phone] NIUR[facility] PH# [phone] AND TO [facility] [phone] [facility] PH# [phone] VANESSA BAHENA PH# [phone].
[2017-12-27] MEDS: ACETAMINOPHEN 650 MG/20.3 ML UDC GT PRN (12:42)
--- NOTE | 2017-12-27 14:00 | NUR ---
TEMP RECHECKED 97.6. PATIENT ASLEEP IN BED. NO S/S OF DISTRESS NOTED
--- NOTE | 2017-12-27 15:23 | NUR ---
PATIENT ASLEEP IN BED. NO S/S OF DISTRESS NOTED
--- NOTE | 2017-12-27 15:26 | NUR ---
12/27/17 RD FOLLOW UP COMPLETED PLEASE REFER TO NUTRITION ASSESSMENT UNDER CARE ACTIVITY FOR ESTIMATED NUTRITIONAL NEEDS. 1. CONTINUE VITAL AT 50 ML/HR -THIS WILL PROVIDE 1200 ML, 1440 KCAL, 90 GM OF PROTEIN, WHICH MEETS 100% OF ESTIMATED KCAL AND PROTEIN NEEDS. 2. CONTINUE FREE WATER FLUSH AT [address] TO FOLLOW-UP 2-3 DAYS, HIGH RISK ALFA SAENZ RD
[2017-12-27 16:00] VITALS: BP 105/67
--- NOTE | 2017-12-27 16:32 | NUR ---
CALLED TOÑO GOLDMAN AND GLENDY GOLDMAN, PERSONS TO NOTIFY SPECIFIED IN THE PATIENTS CHART, TO OBTAIN CONSENT FOR CT WITH CONTRAST. UNABLE TO CONTACT. LEFT VOICE MESSAGE
[2017-12-27] MEDS ORDERED: SODIUM PHOS / POTASSIUM PHOS 1 PKT PDR PO SCH (17:00)
[2017-12-27] MEDS: PIPER/TAZO 3.375GM/D5W PREMIX 50 ML IV SCH ×2 (17:08→23:51)
--- NOTE | 2017-12-27 19:30 | NUR ---
PATIENT REPORT GIVEN AT BEDSIDE. PATIENT ENDORSED IN STABLE CONDITION
--- NOTE | 2017-12-27 19:31 | NUR ---
REPORT RECEIVED FROM AM NURSE AT BEDSIDE. PT IN STABLE CONDITION. AAOX1. BOARD UPDATED. PT HAS BECERRIL. GTUBE IN PLACE. IV SITE LEFT WRIST 24G RUNNING D5NS@50ML/HR PATENT AND INTACT. SECOND IV SITE LEFT BRACHIAL FOR CT OF CHEST/ABD/PELVIS WITH CONTRAST. SKIN WARM, DRY, AND INTACT WITH NO OPEN WOUNDS. BED LOCKED IN LOW POSITION. CALL ARNOLD WITHIN REACH. SAFETY MEASURES IN PLACE.
[2017-12-27 19:57] LABS: APPEARANCE,URINE CLEAR (CLEAR); BILIRUBIN,URINE NEGATIVE (NEGATIVE); BLOOD, URINE NEGATIVE (NEGATIVE); COLOR,URINE STRAW (YELLOW); LEUKOCYTE ESTERASE ,URINE NEGATIVE (NEGATIVE); NITRITE, URINE NEGATIVE (NEGATIVE); UGLUCOSE NEGATIVE (NEGATIVE)
[2017-12-27 20:00] VITALS: BP 119/80
--- NOTE | 2017-12-27 20:10 | NUR ---
KEPPRA, LOPRESSOR, TOPAMAX GIVEN GTUBE. PT TOLERATED WELL. HEPARIN GIVEN SUBQ. PT HAS NOT HAD APTT/INR LABS DRAWN SINCE 12/24/17. PLT IS 96. MD NOTIFIED. GAVE ORDER TO GIVE PT HEPARIN. Addendum: 12/27/17 at 2349 by Pal Mayberry RN PROTONIX GIVEN IVP.
--- NOTE | 2017-12-27 20:30 | NUR ---
PT TO CT FOR CT OF CHEST/ABD/PELVIS WITH CONTRAST. LEFT BRACHIAL 20G INFILTRATED. CT SAID THEY WILL BE BACK WHEN NEW 20G IV IS INSERTED.
--- NOTE | 2017-12-27 22:15 | NUR ---
ER NURSE IN TO INSERT 20G IV. RIGHT AC 20G FLUSHES WELL AND PATENT. WILL CALL CT TO PICK PT UP.
--- NOTE | 2017-12-27 22:30 | NUR ---
CT BACK. ATTEMPTED TO FLUSH IV SITE. IV SITE NO LONGER FLUSHES. MD NOTIFIED. MD ORDERS TO TRY TO INSERT 1 MORE IV. IF UNSUCCESSFUL, THEN PICC LINE WILL BE ORDERED FOR THE AM 12/28/17.
--- NOTE | 2017-12-27 23:51 | NUR ---
JOSEPHINE HUNG AND RUNNING. PT TOLERATING WELL.
[2017-12-28] VITALS: BP 128/78
--- NOTE | 2017-12-28 02:00 | NUR ---
PT SLEEPING COMFORTABLY IN BED. NO S/S OF DISTRESS NOTED. NO COMPLAINTS OF PAIN. NO SOB. WILL CONTINUE TO MONITOR.
[2017-12-28 04:00] VITALS: BP 114/90
--- NOTE | 2017-12-28 04:00 | NUR ---
TUBE FEEDING RESIDUAL AT 130ML. CONTINUE FEEDING ORDERED.
[2017-12-28] MEDS: PIPER/TAZO 3.375GM/D5W PREMIX 50 ML IV SCH ×4 (05:21→23:03)
--- NOTE | 2017-12-28 05:21 | NUR ---
JOSEHPINE HUNG AND RUNNING. PT TOLERATED WELL.
--- NOTE | 2017-12-28 06:25 | NUR ---
PT HR INCREASED FROM 115 TO 125 WHILE PT STILL ASLEEP. MD NOTIFIED. NO CHANGES IN ORDERS.
[2017-12-28 06:52] LABS: EOSINOPHILS % (AUTO) 0.4 % (0.0-4.0); HEMATOCRIT 37.3 % (36-52); HEMOGLOBIN 12.6 g/dL (12.0-18.0); LYMPHOCYTES # (AUTO) 1.9 K/uL (2.0-11.5); LYMPHOCYTES % (AUTO) 17.5 % (20.5-51.1); MEAN CORPUSCULAR HEMOGLOBIN 34 pg (27-31); MEAN CORPUSCULAR HGB CONC 34 g/dL (33-37); MEAN CORPUSCULAR VOLUME 101.4 fL (80-94); MONOCYTES # (AUTO) 1.9 K/uL (0.8-1.0); NEUTROPHILS # (AUTO) 7.2 K/uL (1.8-7.7); NEUTROPHILS % (AUTO) 65.1 % (42.2-75.2); PLATELET COUNT (AUTO) 99 K/uL (140-450); RED BLOOD CELL COUNT(AUTO) 3.67 MIL/uL (4.20-6.10); RED CELL DISTRIBUTION WIDTH 16.3 % (11.6-13.7); WHITE BLOOD COUNT (AUTO) 11.1 K/uL (4.8-10.8)
--- NOTE | 2017-12-28 07:00 | NUR ---
REPORT GIVEN TO AM NURSE AT BEDSIDE. PT IN STABLE CONDITION.
--- NOTE | 2017-12-28 07:01 | NUR ---
REPORT RECEIVED FROM APPRENTICE FUNERAL DIRECTOR NURSE AT BEDSIDE FOR CONTINUITY OF CARE. PT IN STABLE CONDITION. AAOX1. BOARD UPDATED. PT HAS BECERRIL RUNNING TO GRAVITY. GTUBE IN PLACE. IV SITE ON LEFT FA RED AND INFILTRATED, LEFT ARM EDEMATOUS. IV REMOVED, IV CATHETER INTACT, MINIMAL BLEEDING NOTED. SKIN WARM, DRY, AND INTACT WITH NO OPEN WOUNDS. SAFETY PRECAUTION IN PLACE, BED LOCKED IN LOW POSITION. CALL ARNOLD WITHIN REACH. WILL CONTINUE MONITOR PATIENT.
[2017-12-28] MEDS: NACL 0.9% 1,000 ML IV SCH (07:18)
[2017-12-28 07:31] LABS: ANION GAP 14.1 (8-16); CARBON DIOXIDE 17.8 mmol/L (21-32); CREATININE 0.6 mg/dL (0.7-1.3)
[2017-12-28 07:39] LABS: MAGNESIUM 1.7 mg/dL (1.8-2.4)
[2017-12-28 07:49] LABS: POTASSIUM 2.9 mmol/L (3.5-5.1)
[2017-12-28 08:00] VITALS: BP 111/68
[2017-12-28 08:12] LABS: PROTHROMBIN TIME 15.6 secs (10.8-13.4)
[2017-12-28] MEDS ORDERED: [UNRECOGNIZED DRUG - CODE] GT (08:42)
--- NOTE | 2017-12-28 08:50 | NUR ---
INFORMED DR. CAT ABOUT PATIENT'S PLT OF 99 AND NO RESULT FOR INR AND PT YET. DR. CAT SAID STATED HEPARIN CAN BE GIVEN. RN VERBALIZED UNDERSTANDING.
--- NOTE | 2017-12-28 08:55 | NUR ---
RESIDUAL 240 ML. TUBE FEEDING HELD. WILL REASSESS.
[2017-12-28] MEDS ORDERED: POTASSIUM CHLORIDE 20% 40 MEQ/15 ML UDC GT SCH (08:59)
[2017-12-28] MEDS: PANTOPRAZOLE 40 MG INJ VIAL IVP SCH ×2 (09:00→20:55)
--- NOTE | 2017-12-28 09:00 | NUR ---
PROTONIX IVP HELD BECAUSE NO IV ACCESS AT THE MOMENT.
[2017-12-28] MEDS ORDERED: MAGNESIUM OXIDE 400 MG TAB GT SCH (09:24)
--- NOTE | 2017-12-28 10:05 | NUR ---
RESIDUAL 160 ML. TUBE FEEDING CONTINUE TO BE HELD. WILL REASSESS PATIENT. PATIENT RESTING IN BED, NO SIGNS OF DISTRESS OR SOB NOTED ON NASAL CANNULA. WILL CONTINUE TO MONITOR PATIENT.
[2017-12-28] MEDS: levETIRAcetam 100 MG/ML ORASYR GT SCH ×2 (11:39→20:54)
--- NOTE | 2017-12-28 11:39 | NUR ---
GTUBE ASCULATED FOR PLACEMENT, 140 ML OF RESIDUAL NOTED. PER DR BENDER'S ORDERS, PATIENT NEEDS HIS MEDICATIONS. "JUST GIVE MEDICATION, HOLD THE FEEDING". RN VERBALIZED UNDERSTANDING. ORDERED MEDICATIONS CRUSHED AND GIVEN WITH 60 ML OF WATER. PATIENT TOLERATED IT WELL. SAFETY AND SEIZURE PRECAUTION IN PLACE, CALL LIGHT WITHIN REACH. WILL CONTINUE TO MONITOR PATIENT. Addendum: 12/28/17 at 2004 by Star Crespo RN METOPROLOL HELD BECAUSE BP 102/67, HR 106.
[2017-12-28] MEDS: POTASSIUM CHLORIDE 20% 40 MEQ/15 ML UDC GT SCH (11:40)
[2017-12-28] MEDS: ASCORBIC ACID 500 MG/5 ML ORASYR PEG SCH (11:41)
[2017-12-28] MEDS: LACTOBACILLUS RHAMNOSUS GG 1 EACH CAP PO SCH (11:42)
[2017-12-28] MEDS: TOPIRAMATE 100 MG TAB PO SCH ×2 (11:44→20:55)
[2017-12-28] MEDS: METOPROLOL 25 MG TAB PO SCH ×2 (11:46→20:56)
[2017-12-28] MEDS: SODIUM PHOS / POTASSIUM PHOS 1 PKT PDR PO SCH ×2 (11:50→17:01)
[2017-12-28 12:00] VITALS: BP 102/67
--- NOTE | 2017-12-28 12:09 | NUR ---
RESIDUAL 100 ML, TUBE FEEDING STARTED AGAIN. PATIENT TOLERATED IT WELL. WILL CONTINUE TO MONITOR PATIENT.
--- NOTE | 2017-12-28 13:28 | NUR ---
NEW IV INSERTED IN LEFT FOOT 22G, INTACT, ASYMPTOMATIC, AND PATENT. ORDERED MEDICATION GIVEN. PATIENT TOLERATED IT WELL. SAFETY AND SEIZURE PRECAUTION IN PLACE, CALL LIGHT WITHIN REACH, WILL CONTINUE TO MONITOR PATIENT.
--- NOTE | 2017-12-28 14:03 | NUR ---
CM NOTE CONCURRENT REVIEW FAXED TO [facility] [phone] NIURKA PH# [phone] AND TO [facility] [phone] GIGI PH# [phone] VANESSA BAHENA PH# [phone].
[2017-12-28 16:00] VITALS: BP 97/56
--- NOTE | 2017-12-28 17:07 | NUR ---
GTUBE AUSCULTATED FOR PLACEMENT, 0 ML OF RESIDUAL NOTED. ORDERED MEDICATION GIVEN THROUGH GTUBE WITH 35 ML OF WATER.PATIENT TOLERATED IT WELL. SAFETY, SEIZURE PRECAUTION IN PLACE, CALL LIGHT WITHIN REACH, WILL CONTINUE TO MONITOR PATIENT.
[2017-12-28 19:05] LABS: ANION GAP 12.2 (8-16); CARBON DIOXIDE 18.6 mmol/L (21-32); CREATININE 0.7 mg/dL (0.7-1.3); POTASSIUM 3.8 mmol/L (3.5-5.1)
--- NOTE | 2017-12-28 19:35 | NUR ---
REPORT GIVEN TO CUSTODIAL MAINTENANCE WORKER NURSE AT BEDSIDE FOR CONTINUITY OF CARE. PATIENT IN STABLE CONDITION. MOTHER AT BEDSIDE.
--- NOTE | 2017-12-28 19:36 | NUR ---
REPORT RECEIVED FROM AM SHIFT NURSE AT BEDSIDE. PT SLEEPING COMFORTABLY IN BED, RESPIRATIONS EVEN & UNLABORED. LEFT FOOT IV ACCESS INTACT & ASYMPTOMATIC WITH ONGOING NS INFUSION @ 50ML/HR, GT FEEDING ONGOING @ 50ML/HR. PT'S MOTHER AT BEDSIDE. CALL LIGHT WITHIN PT'S REACH.
[2017-12-28 20:00] VITALS: BP 103/74
--- NOTE | 2017-12-28 21:17 | NUR ---
DR MATTA VISITED PT AT THIS TIME. PT SLEEPING COMFORTABLY IN BED, RESPIRATIONS EVEN & UNLABORED. GT INFUSING CONTINUOUSLY, HOB ELEVATED TO 45DEG. LEFT FOOT IV ACCESS ASYMPTOMATIC. CALL LIGHT WITHIN REACH. BED ALARM ON.
--- NOTE | 2017-12-28 23:15 | NUR ---
PT LYING COMFORTABLY IN BED, AWAKE, APHASIC, UNABLE TO FOLLOW SIMPLE COMMANDS. PT SHOWS NO S/SX OF DISTRESS, RESPIRATIONS EVEN & UNLABORED. ORAL CARE PROVIDED. LEFT FOOT IV ACCESS INTACT & ASYMPTOMATIC. CALL LIGHT WITHIN REACH.
[2017-12-29] VITALS: BP 95/58
--- NOTE | 2017-12-29 02:10 | NUR ---
PT ASLEEP, RESPIRATIONS EVEN & UNLABORED, FLACC 0. PT REPOSITIONED, PERICARE PROVIDED VIA 2-PERSON TOTAL ASSIST. CALL LIGHT WITHIN REACH. LEFT FOOT IV ACCESS INTACT & ASYMPTOMATIC.
[2017-12-29] MEDS: NACL 0.9% 1,000 ML IV SCH ×2 (02:35→10:08)
[2017-12-29 04:00] VITALS: BP 113/64
--- NOTE | 2017-12-29 04:15 | NUR ---
PT AWAKE, NONVERBAL, UNABLE TO FOLLOW SIMPLE COMMANDS. VITAL SIGNS OBTAINED. FLACC 0. CONT GT FEEDING & IV INFUSION. LEFT FOOT IV ACCESS INTACT & ASYMPTOMATIC. BED ON LOWEST POSITION WITH ALARM ON.
[2017-12-29] MEDS: PIPER/TAZO 3.375GM/D5W PREMIX 50 ML IV SCH ×4 (05:26→23:38)
--- NOTE | 2017-12-29 06:10 | NUR ---
PT ASLEEP IN BED, RESPIRATIONS EVEN & UNLABORED, FLACC 0.
[2017-12-29 06:54] LABS: BASOPHILS % (AUTO) 0.2 % (0.0-2.0); HEMATOCRIT 35.4 % (36-52); MEAN CORPUSCULAR HGB CONC 34 g/dL (33-37); MONOCYTES # (AUTO) 2.2 K/uL (0.8-1.0); MONOCYTES % (AUTO) 14.5 % (1.7-9.3); PLATELET COUNT (AUTO) 104 K/uL (140-450); RED BLOOD CELL COUNT(AUTO) 3.49 MIL/uL (4.20-6.10)
--- NOTE | 2017-12-29 07:10 | NUR ---
REPORT GIVEN TO AM SHIFT NURSE AT PT'S BEDSIDE
--- NOTE | 2017-12-29 07:12 | NUR ---
RECEIVED BEDSIDE REPORT FROM PROFESSOR OF OCEANOGRAPHY. PATIENT IS SLEEPING COMFORTABLY IN BED. RESPIRATION ARE SYMMETRICAL AND UNLABORED. PATIENT ON 2L NC. LEFT FOOT IV IS INTACT INFUSING NS AT 50ML/HR. FEEDINGS ARE ONGOING. PATIENT HAS BECERRIL CATH. CALL LIGHT WITHIN REACH.
[2017-12-29 07:16] LABS: EOSINOPHILS % (AUTO) 0.3 % (0.0-4.0); LYMPHOCYTES # (AUTO) 2.3 K/uL (2.0-11.5); LYMPHOCYTES % (AUTO) 15.3 % (20.5-51.1); MEAN CORPUSCULAR HEMOGLOBIN 34 pg (27-31); MEAN CORPUSCULAR VOLUME 101.5 fL (80-94); NEUTROPHILS # (AUTO) 10.4 K/uL (1.8-7.7); NEUTROPHILS % (AUTO) 69.7 % (42.2-75.2); RED CELL DISTRIBUTION WIDTH 15.4 % (11.6-13.7)
[2017-12-29 07:45] LABS: ALBUMIN 2.2 g/dL (3.4-5.0); ANION GAP 15.9 (8-16); CARBON DIOXIDE 16.3 mmol/L (21-32); CREATININE 0.7 mg/dL (0.7-1.3); MAGNESIUM 1.6 mg/dL (1.8-2.4); PHOSPHORUS 2.8 mg/dL (2.5-4.9); POTASSIUM 3.2 mmol/L (3.5-5.1); TOTAL BILIRUBIN 0.6 mg/dL (0.0-1.0)
[2017-12-29 08:00] VITALS: BP 113/70
[2017-12-29] MEDS: TOPIRAMATE 100 MG TAB PO SCH ×2 (09:45→20:36)
[2017-12-29] MEDS: LACTOBACILLUS RHAMNOSUS GG 1 EACH CAP PO SCH (09:45)
[2017-12-29] MEDS: SODIUM PHOS / POTASSIUM PHOS 1 PKT PDR PO SCH ×3 (09:45→17:42)
[2017-12-29] MEDS: METOPROLOL 25 MG TAB PO SCH ×2 (09:46→20:38)
[2017-12-29] MEDS: levETIRAcetam 100 MG/ML ORASYR GT SCH ×2 (09:47→20:36)
[2017-12-29] MEDS: PANTOPRAZOLE 40 MG INJ VIAL IVP SCH ×2 (09:47→20:36)
[2017-12-29] MEDS: POTASSIUM CHLORIDE 20% 40 MEQ/15 ML UDC GT SCH (09:48)
[2017-12-29] MEDS: ASCORBIC ACID 500 MG/5 ML ORASYR PEG SCH (09:52)
--- NOTE | 2017-12-29 10:00 | NUR ---
PATIENT IS RESTING COMFORTABLY IN BED. PATIENTS IV ON LEFT FOOT IS ASYMPTOMATIC AND PATENT. NOTED 15 ML OF RESIDUAL. PATIENT TOLERATED MORNING MEDICATIONS WELL. VITAL SIGNS WITHIN NORMAL LIMITS. FLACC 0. BED ON LOWEST POSITION AND BED ALARM ON. WILL CONTINUE TO MONITOR.
--- NOTE | 2017-12-29 11:40 | NUR ---
CM NOTE CONCURRENT REVIEW FAXED TO [facility] [phone] JACLYN PH# [phone] AND TO [facility] [phone] GIGI PH# [phone] VANESSA BAHENA PH# [phone].
[2017-12-29 12:00] VITALS: BP 109/60
--- NOTE | 2017-12-29 13:00 | NUR ---
PATIENT IS RESTING COMFORTABLY IN BED. NO DISTRESS NOTED AT THIS TIME. MOTHER AT BEDSIDE. BED ON LOWEST POSITION AND BED ALARM ON.
--- NOTE | 2017-12-29 14:21 | NUR ---
12/29/17 RD FOLLOW UP COMPLETED PLEASE REFER TO NUTRITION ASSESSMENT UNDER CARE ACTIVITY FOR ESTIMATED NUTRITIONAL NEEDS. 1.CONTINUE VITAL AT 50 ML/HR -THIS WILL PROVIDE 1200 ML, 1440 KCAL, 90 GM OF PROTEIN, WHICH MEETS 100% OF ESTIMATED KCAL AND PROTEIN NEEDS. 2. CONTINUE FREE WATER FLUSH AT [address] TO FOLLOW-UP 2-3 DAYS, HIGH RISK ALFA SAENZ RD
[2017-12-29] MEDS ORDERED: POTASSIUM CHLORIDE 20% 40 MEQ/15 ML UDC GT SCH (14:30)
[2017-12-29] MEDS ORDERED: MAGNESIUM OXIDE 400 MG TAB GT SCH (14:30)
--- NOTE | 2017-12-29 15:37 | NUR ---
ATTEMPTED TO COLLECT SPUTUM FROM PATIENT BUT AFTER SEVERAL ATTEMPTS TO COMMUNICATE WITH PATIENT LEFT CUP AT BEDSIDE. Addendum: 12/29/17 at 1539 by Marleni Sweeney RT PATIENT IS RESTING COMFORTABLY. NO DISTRESS.
[2017-12-29 16:00] VITALS: BP 101/73
--- NOTE | 2017-12-29 16:15 | NUR ---
PATIENTS VITAL SIGNS WITHIN NORMAL LIMITS. NO DISTRESS NOTED AT THIS TIME. PATIENT SLEEPING TOLERATING FOOD WELL. BED ALARM AND BED ON LOWEST POSITION. WILL CONTINUE TO MONITOR
--- NOTE | 2017-12-29 18:00 | NUR ---
PATIENT IS RESTING COMFORTABLY. IN STABLE CONDITION NO DISTRESS NOTED AT THIS TIME. WILL CONTINUE TO MONITOR.
--- NOTE | 2017-12-29 19:15 | NUR ---
ENDORSED PATIENT TO MADHU. PATIENT IS STABLE CONDITION. NO DISTRESS NOTED AT THIS TIME. MOTHER IS AT BEDSIDE.
--- NOTE | 2017-12-29 19:20 | NUR ---
RECEIVED PT SLEEPING, OPEN EYES TO TOUCH, APHASIC, VITAL SIGNS TAKEN, BP ON THE LOW SIDE, NO SOB NOTED, IVF INFUSING WELL VIA LEFT FOOT IV LINE, G-TUBE FEEDING ON-GOING, MAINTAINED HOB ELEVATED AT ALL TIMES, PT CONTRACTED WILL REPOSITION Q2H AND OFFLOAD PRESSURE AREAS, SAFETY MEASURES IN PLACE, SIDE RAILS UP AND BED ALARM ON, FAMILY MEMBER AT BEDSIDE, CALL LIGHT WITHIN REACH.
[2017-12-29 20:00] VITALS: BP 93/60
--- NOTE | 2017-12-29 21:10 | NUR ---
15ML RESIDUAL NOTED, NEW G-TUBE FEEDING BAG STARTED WITH RATE OF 50ML/H WITH FREE WATER FLUSH 50ML Q6H, KEEP HOB ELEVATED AT ALL TIMES FOR ASPIRATION PRECAUTION, MONITORED CLOSELY.
[2017-12-30] VITALS: BP 108/60
[2017-12-30 04:00] VITALS: BP 113/75
--- NOTE | 2017-12-30 04:30 | NUR ---
IV ACCIDENTALLY DISLODGE, BM WITH LARGE SOFT LIGHT BROWN STOOL, SPONGE BATH DONE, NEW IV LINE INSERTED TO RT FOOT WITH GOOD BLOOD RETURN, 10 ML G-TUBE RESIDUAL NOTED, MONITORED CLOSELY.
[2017-12-30] MEDS: PIPER/TAZO 3.375GM/D5W PREMIX 50 ML IV SCH ×4 (05:20→23:11)
--- NOTE | 2017-12-30 07:20 | NUR ---
RECEIVED REPORT FROM DIESEL POWER SHOVEL OPERATOR NURSE. PATIENT RESTING COMFORTABLY IN BED. NO DISTRESS NOTED AT THIS TIME. HE IS EASILY AROUSABLE. SEIZURE PRECAUTIONS IN PLACE. BED ON LOWEST POSITION AND BED ALARM ON.
[2017-12-30 07:36] LABS: BASOPHILS % (AUTO) 0.1 % (0.0-2.0); EOSINOPHILS # (AUTO) 0.1 K/uL (0-0.4); EOSINOPHILS % (AUTO) 0.5 % (0.0-4.0); HEMATOCRIT 36.7 % (36-52); HEMOGLOBIN 12.5 g/dL (12.0-18.0); LYMPHOCYTES # (AUTO) 2.7 K/uL (2.0-11.5); LYMPHOCYTES % (AUTO) 15.5 % (20.5-51.1); MEAN CORPUSCULAR HEMOGLOBIN 35 pg (27-31); MEAN CORPUSCULAR HGB CONC 34 g/dL (33-37); MEAN CORPUSCULAR VOLUME 102.4 fL (80-94); MONOCYTES # (AUTO) 2.5 K/uL (0.8-1.0); MONOCYTES % (AUTO) 14.4 % (1.7-9.3); NEUTROPHILS # (AUTO) 12.1 K/uL (1.8-7.7); NEUTROPHILS % (AUTO) 69.5 % (42.2-75.2); PLATELET COUNT (AUTO) 113 K/uL (140-450); RED BLOOD CELL COUNT(AUTO) 3.59 MIL/uL (4.20-6.10); RED CELL DISTRIBUTION WIDTH 15.9 % (11.6-13.7); WHITE BLOOD COUNT (AUTO) 17.4 K/uL (4.8-10.8)
--- NOTE | 2017-12-30 07:40 | NUR ---
PT MOVING IN BED, KICKING HIS LEGS. IV IN ROOT FOOT IS OUT, CATHETER TIP INTACT. WILL START A NEW IV.
[2017-12-30 08:00] VITALS: BP 109/68
--- NOTE | 2017-12-30 08:15 | NUR ---
OR NURSE ATTEMPTED TO START NEW IV TWICE BUT WAS UNSUCCESSFUL.
[2017-12-30 08:43] LABS: ANION GAP 18.8 (8-16); CARBON DIOXIDE 16.1 mmol/L (21-32); CREATININE 0.8 mg/dL (0.7-1.3); POTASSIUM 3.9 mmol/L (3.5-5.1)
[2017-12-30 08:49] LABS: MAGNESIUM 1.8 mg/dL (1.8-2.4); PHOSPHORUS 2.9 mg/dL (2.5-4.9)
[2017-12-30] MEDS: PANTOPRAZOLE 40 MG INJ VIAL IVP SCH ×2 (09:00→20:50)
[2017-12-30] MEDS: levETIRAcetam 100 MG/ML ORASYR GT SCH ×2 (09:06→20:49)
[2017-12-30] MEDS: TOPIRAMATE 100 MG TAB PO SCH ×2 (09:06→20:50)
[2017-12-30] MEDS: LACTOBACILLUS RHAMNOSUS GG 1 EACH CAP PO SCH (09:06)
[2017-12-30] MEDS: METOPROLOL 25 MG TAB PO SCH ×2 (09:06→20:50)
[2017-12-30] MEDS: POTASSIUM CHLORIDE 20% 40 MEQ/15 ML UDC GT SCH (09:07)
[2017-12-30] MEDS: SODIUM PHOS / POTASSIUM PHOS 1 PKT PDR PO SCH ×3 (09:07→16:44)
[2017-12-30] MEDS: ASCORBIC ACID 500 MG/5 ML ORASYR PEG SCH (09:27)
--- NOTE | 2017-12-30 09:30 | NUR ---
SECOND NURSE ATTEMPTED TO START NEW IV 3 TIMES BUT WAS UNSUCCESSFUL.
--- NOTE | 2017-12-30 09:50 | NUR ---
PATIENT TOLERATED MORNING MEDICATIONS WELL. RESIDUAL 140CC. PATIENT IS STABLE . BED ALARM ON AND LOWEST POSITION.
--- NOTE | 2017-12-30 10:08 | NUR ---
CALLED RESIDENT TO SPEAK TO DR. CAT. DR. CAT WAS NOT AVAILABLE. SPOKE TO DR. PÉREZ AND I LET HER KNOW THE PATIENT DID NOT HAVE AN IV LINE. I LET HER KNOW THERE HAD BEEN MULTIPLE ATTEMPTS. PER DR. PÉREZ SHE WILL NOTIFY DR. CAT.
--- NOTE | 2017-12-30 11:03 | NUR ---
LEFT A VOICEMAIL MESSAGE TO PICC LINE SERVICE TEL#: [phone], AWAITING FOR CALL BACK.
--- NOTE | 2017-12-30 11:55 | NUR ---
PATIENT HAD 30ML OF RESIDUAL AT THIS TIME. TUBE FEEDING RESTARTED.
[2017-12-30 12:00] VITALS: BP 94/63
--- NOTE | 2017-12-30 12:31 | NUR ---
DUE JOSEPHINE HELD. PT HAS NO IV ACCESS AND IS AWAITING PICC LINE.
--- NOTE | 2017-12-30 13:51 | NUR ---
CM NOTE CONCURRENT REVIEW FAXED TO [facility] [phone] JACLYN PH# [phone] AND TO [facility] [phone] GIGI PH# [phone] VANESSA BAHENA PH# [phone].
--- NOTE | 2017-12-30 15:51 | NUR ---
CALLED PICC LINE SERVICE AT TEL#: [phone], I REACHED VOICEMAIL AND LEFT A MESSAGE WITH CALL BACK NUMBER AND EXTENSION.
[2017-12-30 16:00] VITALS: BP 102/74
--- NOTE | 2017-12-30 17:02 | NUR ---
SPOKE TO DR. BISHOP, I LET HIM KNOW THE PATIENT HAD A RESIDUAL OF 240ML. PER DR. BISHOP STOPPED FEEDING FOR 2 HOURS AND RESUME AT 30ML/HR.
--- NOTE | 2017-12-30 17:30 | NUR ---
PICC LINE NURSE (NIKITA) IS AT PT'S BEDSIDE PREPARING TO INSERT PICC LINE ON PT.
--- NOTE | 2017-12-30 19:00 | NUR ---
PICC LINE NURSE WAS ABLE TO INSERT A MIDLINE ON PATIENT. PT TOLERATED WELL, NO S/S OF DISTRESS NOTED, CALL LIGHT IS WITHIN REACH. WILL CONTINUE TO MONITOR.
[2017-12-30] MEDS: NACL 0.9% 1,000 ML IV SCH (19:02)
--- NOTE | 2017-12-30 19:20 | NUR ---
ENDORSED PT TO ACCOUNT CONSULTANT NURSE FOR CONTINUITY OF CARE. PT STABLE AT THIS TIME. PT'S GRANDMOTHER IS AT BEDSIDE.
--- NOTE | 2017-12-30 19:22 | NUR ---
RECEIVED PT SLEEPING, OPEN EYES TO TOUCH, APHASIC, VITAL SIGNS STABLE, NO SOB NOTED, ZOSYN IVPB INFUSING WELL VIA RT UPPER ARM PICC LINE, G-TUBE FEEDING ON-GOING, MAINTAINED HOB ELEVATED AT ALL TIMES, BECERRIL CATHETER TO GRAVITY WITH LIGHT FELICITY/ORANGE URINE OUTPUT, PT CONTRACTED WILL REPOSITION Q2H AND OFFLOAD PRESSURE AREAS, SAFETY MEASURES IN PLACE, SIDE RAILS UP AND PADDED FOR SEIZURE PRECAUTION, BED ALARM ON, FAMILY MEMBER AT BEDSIDE, CALL LIGHT WITHIN REACH.
[2017-12-30 20:00] VITALS: BP 110/79
--- NOTE | 2017-12-30 20:10 | NUR ---
PT AWAKE, SEEN GRIMACING, PT HAD LARGE SOFT BM, PERINEAL CARE DONE, REPOSITIONED AND OFFLOAD PRESSURE AREAS, PT KEEPS ON BENDING RT ARM, ARM BOARD APPLIED AND WRAPPED WITH ROLLED GAUZE, PT WENT BACK TO SLEEP, NEEDS ATTENDED.
[2017-12-30] MEDS ORDERED: VANCOMYCIN PER PHARMACY MC PRN (22:30)
[2017-12-30] MEDS ORDERED: VANCOMYCIN HCL 750 MG in NACL 0.9% 250 ML IV SCH (23:00)
[2017-12-30] MEDS ORDERED: VANCOMYCIN 1,000 MG VIAL ONE (23:14)
--- NOTE | 2017-12-30 23:20 | NUR ---
RT DILLARD MADE AWARE OF SPUTUM INDUCTION ORDER, STATED HE WILL FOLLOW UP.
--- NOTE | 2017-12-30 23:40 | NUR ---
PT SLEEPING, NO DISTRESS NOTED, VITAL SIGNS STABLE, VANCOMYCIN IVPB STARTED, MONITORED FOR ANY REACTION, REPOSITIONED AND OFFLOAD PRESSURE AREAS, CONTINUE TO MONITOR CLOSELY.
[2017-12-31] VITALS (7 sets, daily range): BP systolic 89–113; BP diastolic 51–69
--- NOTE | 2017-12-31 03:35 | NUR ---
PT SLEEPING, NO DISTRESS NOTED, VITAL SIGNS STABLE, 130 ML G-TUBE RESIDUAL NOTED, PER PARAMETER TO HOLD FEEDING IF RESIDUAL REACH 200ML, CONTINUE FEEDING FOR NOW AT 30ML/H, KEEP HOB ELEVATED AT ALL TIMES, WILL RECHECK RESIDUAL LATER, QUARTER SEAMER LINDA MADE AWARE, MONITORED CLOSELY.
[2017-12-31] MEDS: PIPER/TAZO 3.375GM/D5W PREMIX 50 ML IV SCH ×3 (05:13→17:30)
--- NOTE | 2017-12-31 05:50 | NUR ---
RAG SHREDDER TRIED X2 TO DRAW PERIPHERAL BLOOD FOR LAB BUT UNABLE TO GET IT, MIDLINE FLUSHES WELL BUT NO BACK FLOW NOTED TO BOTH PORTS, RAG SHREDDER WILL TRY AGAIN LATER.
--- NOTE | 2017-12-31 06:05 | NUR ---
40ML G-TUBE RESIDUAL NOTED, CONTINUE G-TUBE FEEDING, NO DISTRESS NOTED, IVF INFUSING WELL, MONITORED CLOSELY.
--- NOTE | 2017-12-31 07:18 | NUR ---
PT SLEEPING, NO SIGNS OF DISTRESS, REPORT GIVEN TO CHADWICK LALA FOR CONTINUITY OF CARE.
[2017-12-31 07:24] LABS: BASOPHILS % (AUTO) 0.2 % (0.0-2.0); EOSINOPHILS # (AUTO) 0.1 K/uL (0-0.4); EOSINOPHILS % (AUTO) 0.4 % (0.0-4.0); HEMATOCRIT 36.3 % (36-52); HEMOGLOBIN 11.8 g/dL (12.0-18.0); LYMPHOCYTES # (AUTO) 3.9 K/uL (2.0-11.5); LYMPHOCYTES % (AUTO) 19.9 % (20.5-51.1); MEAN CORPUSCULAR HEMOGLOBIN 34 pg (27-31); MEAN CORPUSCULAR HGB CONC 33 g/dL (33-37); MEAN CORPUSCULAR VOLUME 104.1 fL (80-94); MONOCYTES # (AUTO) 2.5 K/uL (0.8-1.0); NEUTROPHILS # (AUTO) 12.9 K/uL (1.8-7.7); NEUTROPHILS % (AUTO) 66.5 % (42.2-75.2); PLATELET COUNT (AUTO) 122 K/uL (140-450); RED BLOOD CELL COUNT(AUTO) 3.48 MIL/uL (4.20-6.10); RED CELL DISTRIBUTION WIDTH 16.1 % (11.6-13.7); WHITE BLOOD COUNT (AUTO) 19.4 K/uL (4.8-10.8)
--- NOTE | 2017-12-31 07:30 | NUR ---
PATIENT IS SLEEPING COMFORTABLY, RESPONSIVE TO NAME. RESPIRATION EVEN, UNLABOR ON 2L NC. SKIN DRY AND WARM. MIDLINE PATENT AND INTACT. BECERRIL IS DRAINING DARK YELLOW URINE. GTUBE DRY AND INTACT. PLAN OF CARE WAS DISCUSSED WITH PATIENT. PATIENT UNABLE TO COMPREHEND. BED AT LOW POSITION, SIDE RAILS UP AND PADDED. SEIZURE PRECAUTION AND FALL PRECAUTION ARE ENSURED. CALL LIGHT WITHIN REACH
[2017-12-31 07:43] LABS: ANION GAP 17.9 (8-16); CARBON DIOXIDE 15.5 mmol/L (21-32); CREATININE 0.6 mg/dL (0.7-1.3); POTASSIUM 3.4 mmol/L (3.5-5.1)
[2017-12-31 07:44] LABS: AMYLASE 166 U/L (25-115); LIPASE 1733 U/L (73-393)
--- NOTE | 2017-12-31 09:00 | NUR ---
PATIENT WAS RESTING COMFORTABLY, RESPONSIVE TO NAME. RESPIRATION EVEN, UNLABOR ON 2L O2. MEDS WERE GIVEN PER ORDER. RESIDUAL CHECKED AT 100 ML. PATIENT TOLERATING FEEDING WELL.
[2017-12-31] MEDS: SODIUM PHOS / POTASSIUM PHOS 1 PKT PDR PO SCH ×3 (09:08→17:30)
[2017-12-31] MEDS: POTASSIUM CHLORIDE 20% 40 MEQ/15 ML UDC GT SCH (09:08)
[2017-12-31] MEDS: levETIRAcetam 100 MG/ML ORASYR GT SCH ×2 (09:08→21:34)
[2017-12-31] MEDS: PANTOPRAZOLE 40 MG INJ VIAL IVP SCH ×2 (09:08→21:34)
[2017-12-31] MEDS: LACTOBACILLUS RHAMNOSUS GG 1 EACH CAP PO SCH (09:09)
[2017-12-31] MEDS: METOPROLOL 25 MG TAB PO SCH ×2 (09:09→21:35)
[2017-12-31] MEDS: ASCORBIC ACID 500 MG/5 ML ORASYR PEG SCH (09:09)
[2017-12-31] MEDS: TOPIRAMATE 100 MG TAB PO SCH ×2 (09:09→21:35)
[2017-12-31] MEDS: VANCOMYCIN 750 MG in DEXTROSE 5% 250 ML IV SCH ×2 (10:27→22:22)
--- NOTE | 2017-12-31 11:19 | NUR ---
CM NOTE CONCURRENT REVIEW FAXED TO [facility] [phone] JACLYN PH# [phone] AND TO [facility] [phone] GIGI PH# [phone] VANESSA BAHENA PH# [phone]. Addendum: 12/31/17 at 1522 by Edna Nunn PER [facility] HAYWOOD PH# [phone], FOR THEIR WEEKEND COVERAGE TO CALL # [phone]
--- NOTE | 2017-12-31 11:39 | NUR ---
SCREEN FOR LOW CAROLE SCALE: PT IS AT STABLE CONDITION O2 WITH NC, HOB ELEVATED. GT FEEDING IN PROGRESS, GT SITE DRY WITH STOMA GIN-SKIN INTACT. MULTIPLE DISCOLORATION TO LEFT HAND /L WRIST AND LEFT DORSAL FOOT R/T S/P IV INSERTION. UPPER AND LOWER EXTREMITIES CONTRACTURE. NO SKIN REDNESS. ALL PRESSURE INJURY PREVENTION INTERVENTION IN PLACE. LEFT FOREARM SKIN TEAR DRESSING DCI, AREA IS CLEAN NO S/S INFECTION. CONTINUE TO: -TURN AND REPOSITION PATIENT Q 2H OFFLOAD LEFT AND RIGHT HIPS -ASSESS AND MONITOR SKIN CONDITION DURING POSITION CHANGE, PLEASE PAY ATTENTION TO KNEES, FEET AND HEELS -OFFLOAD BILATERAL HEELS BY PLACING PILLOWS UNDER CALVES AT ALL TIMES, UNLESS OTHERWISE CONTRAINDICATED -PRESSURE REDISTRIBUTION SURFACE THERAPY -KEEP SKIN CLEAN AND DRY AT ALL TIMES.
--- NOTE | 2017-12-31 11:40 | NUR ---
PATIENT WAS RESTING COMFORTABLY, RESPONSIVE BY TOUCH. RESPIRATION EVEN, UNLABOR ON 2L NC. VS IS STABLE. FLACC 0. FEEDING WAS INCREASED TO 40 ML/HR PER DR BISHOP'S ORDER.
[2017-12-31] MEDS ORDERED: POTASSIUM CHLORIDE 20% 40 MEQ/15 ML UDC GT SCH (13:00)
[2017-12-31] MEDS ORDERED: DRY DRESSING TP PRN (13:00)
--- NOTE | 2017-12-31 14:01 | NUR ---
PATIENT IS RESTING COMFORTABLY. RESPIRATION EVEN, UNLABOR. NO DISTRESS NOTED AT THIS TIME.
[2017-12-31] MEDS: NACL 0.9% 1,000 ML IV SCH (14:35)
--- NOTE | 2017-12-31 16:15 | NUR ---
PATIENT IS RESTING COMFORTABLY. RESPIRATION EVEN, UNLABOR ON 2L NC. FLACC 0. VS IS STABLE. NO DISTRESS NOTED AT THIS TIME. RESIDUAL CHECKED AT 5ML, PATIENT TOLERATING FEEDING WELL.
--- NOTE | 2017-12-31 17:47 | NUR ---
STOOL SAMPLE WAS OBTAINED AND SENT TO LAB PER ORDER
--- NOTE | 2017-12-31 18:20 | NUR ---
PATIENT WAS RESTING COMFORTABLY. RESPIRATION EVEN, UNLABOR ON 2L NC. NO DISTRESS NOTED AT THIS TIME. FAMILY AT BEDSIDE. CALL LIGHT WITHIN REACH
--- NOTE | 2017-12-31 19:00 | NUR ---
RECEIVED BEDSIDE REPORT FROM DAY SHIFT RN SPIKE. PT IN BED ASLEEP, ON 2 L NC, NO ACUTE DISTRESS, FAMILY AT BEDSIDE, RIGHT MIDLINE INFUSING NS AT 50 ML/HR, SLIGHT BRUISING AROUND MIDLINE INSERTION, DRESSING CLEAN AND INTACT. LEFT G-TUBE IN PLACE, INFUSING VITAL AF 1.2 AT 40 ML/HR, 200 ML RESIDUALS ASPIRATED, 2 POSSIBLE BLOOD CLOTS SEEN IN RESIDUALS, DR MCKEON AWARE, WILL HOLD TUBE FEEDINGS, DRESSING APPLIED AROUND G-TUBE SITE. BECERRIL CATH IN PLACE DRAINING DARK YELLOW URINE. SCD IN PLACE. PT ON ASPIRATION, SEIZURE, AND FALL PRECAUTIONS WITH APPROPRIATE EQUIPMENT IN PLACE. NOTED LEFT ARM BLISTER, DRESSING INTACT. BED IN LOWEST POSITION, WILL ENSURE FREQUENT ROUNDS. CALL LIGHT WITHIN REACH.
[2017-12-31 20:06] LABS: APPEARANCE,URINE CLEAR (CLEAR); BILIRUBIN,URINE NEGATIVE (NEGATIVE); BLOOD, URINE 3+ (NEGATIVE); COLOR,URINE YELLOW (YELLOW); LEUKOCYTE ESTERASE ,URINE NEGATIVE (NEGATIVE); NITRITE, URINE NEGATIVE (NEGATIVE); PH,URINE 7.5 (5.0-9.0); UGLUCOSE NEGATIVE (NEGATIVE)
[2017-12-31 20:15] LABS: RBC,URINE TOO NUMEROUS TO COUN /HPF (0-5); WBC,URINE 0-5 (RARE) /HPF (0-5)
--- NOTE | 2017-12-31 21:00 | NUR ---
DUE MEDICATIONS GIVEN, PT TOLERATED, WELL, WILL CONTINUE TO MONITOR.
--- NOTE | 2017-12-31 23:00 | NUR ---
PT REPOSITIONED FOR COMFORT, V/S TAKEN ALL WITHIN PTS BASELINE. WILL CONTINUE TO MONITOR.
[2018-01-01] VITALS: BP 110/67
--- NOTE | 2018-01-01 00:10 | NUR ---
FLUSHED G-TUBE WITH [address] MCKEON VERBAL ORDER. RESIDUALS AT 180 ML. WILL CONTINUE TO HOLD TUBE FEEDINGS.
[2018-01-01] MEDS: PIPER/TAZO 3.375GM/D5W PREMIX 50 ML IV SCH ×4 (00:26→17:45)
--- NOTE | 2018-01-01 02:30 | NUR ---
G-TUBE RESIDUALS AT 180 ML. WILL CONTINUE TO HOLD TUBE FEEDINGS.
[2018-01-01 04:00] VITALS: BP 105/60
--- NOTE | 2018-01-01 04:00 | NUR ---
PT ASLEEP IN BED, V/S TAKEN ALL WITHIN PTS BASELINE. NO SIGNS OF ACUTE DISTRESS, WILL CONTINUE TO MONITOR.
--- NOTE | 2018-01-01 06:00 | NUR ---
G-TUBE RESIDUALS AT 70 ML. WILL CONTINUE TO MONITOR, DUE MEDICATION GIVEN.
[2018-01-01 06:40] LABS: ANION GAP 12.8 (8-16); CARBON DIOXIDE 20.4 mmol/L (21-32); CREATININE 0.6 mg/dL (0.7-1.3); POTASSIUM 3.2 mmol/L (3.5-5.1)
[2018-01-01 06:42] LABS: HEMATOCRIT 32.6 % (36-52); HEMOGLOBIN 10.9 g/dL (12.0-18.0); MEAN CORPUSCULAR HEMOGLOBIN 34 pg (27-31); MEAN CORPUSCULAR HGB CONC 34 g/dL (33-37); MEAN CORPUSCULAR VOLUME 102.4 fL (80-94); PLATELET COUNT (AUTO) 114 K/uL (140-450); RED BLOOD CELL COUNT(AUTO) 3.18 MIL/uL (4.20-6.10); WHITE BLOOD COUNT (AUTO) 19.6 K/uL (4.8-10.8)
[2018-01-01 06:45] LABS: MAGNESIUM 1.8 mg/dL (1.8-2.4); PHOSPHORUS 2.9 mg/dL (2.5-4.9)
--- NOTE | 2018-01-01 07:05 | NUR ---
PT REPORT RECEIVED AT BEDSIDE FROM DISTRIBUTION DISPATCHER NURSE TONJA. PT IS IN BED, ALERT, NO S/S OF DISTRESS NOTED. PT IS ON 2L O2 NC. MIDLINE NOTED ON RUE INFUSING NS 50 ML/HR. G TUBE IN PLACE, FORMULA RUNNING 40 ML/HR. NO RESIDUAL NOTED AT THIS TIME. BECERRIL CATH IN PLACE DRAINING CLEAR YELLOW URINE. BED IS IN LOW POSITION, SEIZURE PRECAUTIONS IN PLACE, CALL LIGHT WITHIN REACH. WILL CONTINUE TO MONITOR.
[2018-01-01 07:18] LABS: LYMPHOCYTES % (MANUAL) 22 % (20-46); MONOCYTES % (MANUAL) 14 % (5-12)
--- NOTE | 2018-01-01 07:34 | NUR ---
ENDORSED PT TO DAY SHIFT NURSE, PT STABLE.
--- NOTE | 2018-01-01 07:58 | NUR ---
PATIENT WAS RESTING. VITALS ON 2L NASAL CANULA: 100%, PULSE 111, DIMINISHED BREATH SOUNDS AND PULSE OF 20. NO SOB OR DISTRESS NOTED. WILL CONTINUE TO MONITOR.
[2018-01-01 08:00] VITALS: BP 112/60
--- NOTE | 2018-01-01 08:30 | NUR ---
ADMINISTERED SCHEDULED MEDS THROUGH THE G TUBE, NO RESIDUAL NOTED. PT HAD A BM: STOOL LARGE AND LOOSE. PT CLEANED AND REPOSITIONED FOR COMFORT; PT TOLERATED WELL.
[2018-01-01] MEDS: levETIRAcetam 100 MG/ML ORASYR GT SCH ×2 (08:42→21:17)
[2018-01-01] MEDS: POTASSIUM CHLORIDE 20% 40 MEQ/15 ML UDC GT SCH (08:43)
[2018-01-01] MEDS: PANTOPRAZOLE 40 MG INJ VIAL IVP SCH ×2 (08:43→21:17)
[2018-01-01] MEDS: SODIUM PHOS / POTASSIUM PHOS 1 PKT PDR PO SCH ×3 (08:43→17:44)
[2018-01-01] MEDS: ASCORBIC ACID 500 MG/5 ML ORASYR PEG SCH (08:43)
[2018-01-01] MEDS: METOPROLOL 25 MG TAB PO SCH ×2 (08:44→21:00)
[2018-01-01] MEDS: LACTOBACILLUS RHAMNOSUS GG 1 EACH CAP GT SCH (08:44)
[2018-01-01] MEDS: TOPIRAMATE 100 MG TAB PO SCH ×2 (08:46→21:17)
[2018-01-01] MEDS: NACL 0.9% 1,000 ML IV SCH (10:35)
--- NOTE | 2018-01-01 11:00 | NUR ---
PT GIVEN A BED BATH. OT HAD ANOTHER EPISODE OF DIARRHEA. PT TURNED AND REPOSITIONED; NO S/S OF DISTRESS NOTED.
[2018-01-01 12:00] VITALS: BP 135/74
[2018-01-01] MEDS ORDERED: VANCOMYCIN 500 MG in DEXTROSE 5% 100 ML IV SCH (13:00)
--- NOTE | 2018-01-01 14:15 | NUR ---
PT'S FAMILY PRESENT AT BEDSIDE; NO S/S OF DISTRESS NOTED AT THIS TIME; PT SLEEPING.
[2018-01-01 16:00] VITALS: BP 104/67
[2018-01-01] MEDS ORDERED: VANCOMYCIN 500 MG VIAL ONE (19:07)
--- NOTE | 2018-01-01 19:20 | NUR ---
PT REPORT GIVEN AT BEDSIDE TO THE SUPERVISOR CUTTING DEPARTMENT NURSE. PT ENDORSED IN STABLE CONDITION.
[2018-01-01] MEDS ORDERED: ALBUTEROL SULFATE/IPRATROPIU 3 ML SOL IH PRN (19:25)
--- NOTE | 2018-01-01 19:30 | NUR ---
RECEIVED REPORT FROM MARIANNE HERNÁNDEZ AT BEDSIDE FOR CONTINUITY OF CARE. PT APHASIC AND MENTALLY DISABLED. PT IV NOTED JOZEF MIDLINE DOUBLE LUMEN. PT HAS NO SOB NO S/S OF DISTRESS ON 2L NC 02. BED LOWERED CALL LIGHT WITHIN REACH WILL CONTINUE TO MONITOR.
[2018-01-01] MEDS: VANCOMYCIN 500 MG VIAL GT SCH (19:49)
[2018-01-01] MEDS ORDERED: WATER STERILE 20 ML MC ONE (19:52)
[2018-01-01 20:00] VITALS: BP 95/56
--- NOTE | 2018-01-01 20:35 | NUR ---
PATIENT UNABLE TO COMPREHEND INCENTIVE SPIROMETRY INSTRUCTIONS DUE TO MENTAL DISABILITY
--- NOTE | 2018-01-01 21:00 | NUR ---
ASSESSED TUBE FEEDING RESIDUAL 100ML. WILL CONTINUE TO MONITOR.
[2018-01-02] VITALS: BP 120/65
--- NOTE | 2018-01-02 | NUR ---
TUBE FEEDING RESIDUAL 175ML. WILL CONTINUE TO MONITOR.
[2018-01-02] MEDS: PIPER/TAZO 3.375GM/D5W PREMIX 50 ML IV SCH ×5 (00:24→23:01)
[2018-01-02] MEDS: VANCOMYCIN 500 MG VIAL GT SCH ×5 (00:24→23:01)
[2018-01-02] MEDS: NACL 0.9% 1,000 ML IV SCH (00:24)
--- NOTE | 2018-01-02 02:50 | NUR ---
LICENSED DISPENSING OPTICIAN LET ME KNOW PT HR WAS 130'S SO I ASSESSED PT. PT HUNCHED OVER AND I REPOSITION. NOTICE MINIMAL BLEEDING FROM LEFT NOSTRIL SO I REMOVED NC. O2 SAT AT 100%. WILL CONTINUE TO MONITOR.
--- NOTE | 2018-01-02 03:00 | NUR ---
STARTED NEW G TUBE FEEDING VITAL AF 50ML/HR AND 50 WATER Q6H. RESIDUAL 150ML WILL CONTINUE TO MONITOR.
--- NOTE | 2018-01-02 03:10 | NUR ---
HR AT 116 TRENDING DOWN WILL CONTINUE TO MONITOR.
--- NOTE | 2018-01-02 05:32 | NUR ---
HELD TUBE FEEDING RESIDUAL OVER >200ML. WILL REASSESS IN 1 HR. AND RESUME IF RESIDUAL UNDER <100ML.
[2018-01-02 05:56] VITALS: BP 114/59
[2018-01-02] MEDS ORDERED: HYDRAGUARD CREAM TP SCH (06:00)
--- NOTE | 2018-01-02 06:56 | NUR ---
HELD TUBE FEEDING RESIDUAL AFTER 1 HR HOLD IS 120ML. WILL HOLD FOR 1 HR.
--- NOTE | 2018-01-02 07:05 | NUR ---
PT REPORT RECEIVED AT BEDSIDE FROM DWARF TREE GROWER NURSE. PT IS CURRENTLY ON ROOM AIR, O2 SAT 100%. PT IS ASLEEP, BUT AROUSABLE BY VOICE. SHOWING NO S/S OF DISTRESS. R MIDLINE INTACT, PATENT, AND INFUSING IVF PER ORDER. LUNGS ARE CLEAR, CTA ON ALL LOBES. G TUBE SITE CLEAN AND PATENT, INFUSING FORMULA PER ORDERS. BECERRIL CATHETER IN PLACE, DRAINING CLEAR YELLOW URINE. LEFT ARM BLISTER NOTED, COVERED BY A DRY DRESSING; DRESSING INTACT. PERINEAL REDNESS NOTED. REVIEWED PLAN OF CARE WITH PATIENT; PT UNABLE TO COMPREHEND; REINFORCEMENT NEEDED. CALL LIGHT WITHIN REACH, SAFETY MEASURES IN PLACE, WILL CONTINUE TO MONITOR.
--- NOTE | 2018-01-02 07:32 | NUR ---
PATIENT RESTING. O2 SATS ON RA ARE 99%. NASAL CANNULA LEFT AT BEDSIDE. NO SOB OR DISTRESS NOTED AT THIS TIME.
--- NOTE | 2018-01-02 07:33 | NUR ---
INCENTIVE SPIROMETER AT BEDSIDE. PATIENT SEEMS UNABLE TO UNDERSTAND OR ATTEMPT INCENTIVE SPIROMETRY.
[2018-01-02 08:00] VITALS: BP 95/59
[2018-01-02] MEDS: METOPROLOL 25 MG TAB PO SCH ×2 (08:34→20:46)
[2018-01-02] MEDS: SODIUM PHOS / POTASSIUM PHOS 1 PKT PDR PO SCH ×3 (08:57→17:51)
[2018-01-02] MEDS: LACTOBACILLUS RHAMNOSUS GG 1 EACH CAP GT SCH (08:57)
[2018-01-02] MEDS: PANTOPRAZOLE 40 MG INJ VIAL IVP SCH ×2 (08:57→20:45)
[2018-01-02] MEDS: TOPIRAMATE 100 MG TAB PO SCH ×2 (08:58→20:45)
[2018-01-02] MEDS: ASCORBIC ACID 500 MG/5 ML ORASYR PEG SCH (08:58)
[2018-01-02] MEDS: levETIRAcetam 100 MG/ML ORASYR GT SCH ×2 (08:58→20:43)
[2018-01-02] MEDS: POTASSIUM CHLORIDE 20% 40 MEQ/15 ML UDC GT SCH (08:58)
--- NOTE | 2018-01-02 09:00 | NUR ---
SCHEDULED MEDS DUE GIVEN; IV HEPARIN HELD DUE TO LOW PLATELETS AND HIGH PTT. WILL CONTINUE TO MONITOR.
[2018-01-02 09:05] LABS: HEMATOCRIT 28.5 % (36-52); HEMOGLOBIN 9.7 g/dL (12.0-18.0); MEAN CORPUSCULAR HEMOGLOBIN 35 pg (27-31); MEAN CORPUSCULAR HGB CONC 34 g/dL (33-37); MEAN CORPUSCULAR VOLUME 102.6 fL (80-94); PLATELET COUNT (AUTO) 113 K/uL (140-450); RED BLOOD CELL COUNT(AUTO) 2.78 MIL/uL (4.20-6.10); RED CELL DISTRIBUTION WIDTH 15.5 % (11.6-13.7); WHITE BLOOD COUNT (AUTO) 16.8 K/uL (4.8-10.8)
--- NOTE | 2018-01-02 10:00 | NUR ---
PATIENT HAD A SEIZURE EPISODE WITH LEGS SHAKING AND ARMS SPASMS THAT LASTED FOR ABOUT [address]Y MEAS[address] PL[address] WILL CONTINUE TO MONITOR.
[2018-01-02 10:16] LABS: BASOPHILS % (MANUAL) 0 % (0-2); EOSINOPHILS % (MANUAL) 2 % (0-4); LYMPHOCYTES % (MANUAL) 19 % (20-46); MONOCYTES % (MANUAL) 10 % (5-12)
[2018-01-02 12:00] VITALS: BP 92/50
--- NOTE | 2018-01-02 13:37 | NUR ---
PATIENT LYING DOWN IN BED, AROUSABLE BY VOICE AND LIGHT SHAKING. NO DISTRESS NOTED. FLACC 0. SCHEDULED MEDICATIONS DUE GIVEN. SAFETY MEASURES IN PLACE, CALL LIGHT WITHIN REACH. WILL CONTINUE TO MONITOR.
[2018-01-02 16:00] VITALS: BP 101/47
--- NOTE | 2018-01-02 16:30 | NUR ---
PATIENT LYING DOWN IN BED, AROUSABLE BY VOICE. CONDITION UNCHANGED. WILL CONTINUE TO MONITOR.
--- NOTE | 2018-01-02 18:15 | NUR ---
PATIENT LYING DOWN IN BED SLEEPING, AROUSABLE BY VOICE. NO DISTRESS NOTED. CONDITION UNCHANGED. WILL CONTINUE TO MONITOR.
--- NOTE | 2018-01-02 19:15 | NUR ---
PT REPORT GIVEN TO TUG HAND NURSE AT BEDSIDE. PT ENDORSED IN STABLE CONDITION; NO S/S OF DISTRESS AT THIS TIME.
--- NOTE | 2018-01-02 19:16 | NUR ---
RECEIVED REPORT FROM CONG BERRY NURSE AT BEDSIDE FOR CONTINUITY OF CARE. PT AAOX1. PT MENTALLY DISABLED AND APHASIC. IV NOTED RIGHT MIDLINE DOUBLE LUMEN NS 50ML/HR. NO SOB NO S/S OF DISTRESS ON RA. PT HAS BECERRIL IN PLACE. BED LOWERED CALL LIGHT WITHIN REACH WILL CONTINUE TO MONITOR.
--- NOTE | 2018-01-02 19:50 | NUR ---
PT HR 130'S PT SLEEPING. MD MONTALVO AWARE. WILL ADMIN SCHEDULED MED LOPRESSOR AND KEEP MONITORING HEART.
[2018-01-02 20:00] VITALS: BP 135/66
--- NOTE | 2018-01-02 20:45 | NUR ---
ADMIN MEDS. RESIDUAL FROM TUBE FEEDING 120ML. WILL CONTINUE TO MONITOR,
[2018-01-03] VITALS: BP 125/62
--- NOTE | 2018-01-03 | NUR ---
TUBE FEEDING RESIDUAL 90ML. WILL CONTINUE WITH FEEDING.
[2018-01-03] MEDS: NACL 0.9% 1,000 ML IV SCH ×2 (02:35→18:25)
--- NOTE | 2018-01-03 03:30 | NUR ---
STARTED NEW FEEDING VITAL 1L AT 50ML/HR AND 50 ML WATER Q6H. WILL CONTINUE TO MONITOR.
[2018-01-03 04:00] VITALS: BP 93/55
[2018-01-03] MEDS: VANCOMYCIN 500 MG VIAL GT SCH ×3 (05:17→18:26)
[2018-01-03] MEDS: PIPER/TAZO 3.375GM/D5W PREMIX 50 ML IV SCH (05:17)
--- NOTE | 2018-01-03 07:28 | NUR ---
ENDORSED REPORT TO DAYSHIFT NURSE AT BEDSIDE FOR CONTINUITY OF CARE.
--- NOTE | 2018-01-03 07:30 | NUR ---
RECEIVED PT ON BED AWAKE, ALERT, APHASIC, HX MENTAL RETARDATION. NO SOB NOTED. NO SIGNS OF PAIN AT THIS TIME. WITH RT UPPER ARM MID LINE, PATENT, SITE CLEAN, DRESSING DRY AND INTACT. CHEST, DIMINISHED AIR ENTRY TO THE BASES. ABDOMEN SOFT, BOWEL SOUNDS PRESENT. WITH G-TUBE FEEDING, RESIDUALS OF 50 MLS NOTED, PT TOLERATING G-TUBE FEEDING WELL. WITH BECERRIL DRAINING MODERATE AMOUNTS OF CLEAR FELICITY URINE. BILATERAL UPPER AND LOWER EXTREMITIES CONTRACTED, WILL REPOSITION PT EVERY 2 HRS. BED ALARM ON, 3 SIDE RAILS RAISED UP, BED ON LOWEST POSITION. WILL CONTINUE TO MONITOR.
[2018-01-03 07:44] LABS: HEMATOCRIT 27.9 % (36-52); HEMOGLOBIN 9.4 g/dL (12.0-18.0); MEAN CORPUSCULAR HEMOGLOBIN 35 pg (27-31); MEAN CORPUSCULAR HGB CONC 34 g/dL (33-37); MEAN CORPUSCULAR VOLUME 103.4 fL (80-94); PLATELET COUNT (AUTO) 132 K/uL (140-450); RED CELL DISTRIBUTION WIDTH 16.1 % (11.6-13.7); WHITE BLOOD COUNT (AUTO) 18.8 K/uL (4.8-10.8)
[2018-01-03 07:50] LABS: ANION GAP 16.7 (8-16); CREATININE 0.6 mg/dL (0.7-1.3); POTASSIUM 3.7 mmol/L (3.5-5.1)
[2018-01-03 07:55] LABS: MAGNESIUM 1.9 mg/dL (1.8-2.4); PHOSPHORUS 3.2 mg/dL (2.5-4.9)
[2018-01-03 08:00] VITALS: BP 96/52
[2018-01-03 08:21] LABS: AMYLASE 210 U/L (25-115)
[2018-01-03 08:53] LABS: EOSINOPHILS % (MANUAL) 1 % (0-4); LYMPHOCYTES % (MANUAL) 19 % (20-46); MONOCYTES % (MANUAL) 6 % (5-12)
[2018-01-03] MEDS: PHARMACY COMMENTS MC SCH (09:00)
[2018-01-03] MEDS: ASCORBIC ACID 500 MG/5 ML ORASYR PEG SCH (09:06)
[2018-01-03] MEDS: TOPIRAMATE 100 MG TAB PO SCH ×2 (09:10→21:44)
[2018-01-03] MEDS: METOPROLOL 25 MG TAB PO SCH ×2 (09:12→21:44)
[2018-01-03] MEDS: LACTOBACILLUS RHAMNOSUS GG 1 EACH CAP GT SCH (09:14)
[2018-01-03] MEDS: SODIUM PHOS / POTASSIUM PHOS 1 PKT PDR PO SCH ×3 (09:14→18:25)
[2018-01-03] MEDS: PANTOPRAZOLE 40 MG INJ VIAL IVP SCH ×2 (09:14→21:44)
[2018-01-03] MEDS: POTASSIUM CHLORIDE 20% 40 MEQ/15 ML UDC GT SCH (09:15)
[2018-01-03] MEDS: levETIRAcetam 100 MG/ML ORASYR GT SCH ×2 (09:15→21:45)
[2018-01-03 09:16] LABS: LIPASE 3262 U/L (73-393)
--- NOTE | 2018-01-03 10:01 | NUR ---
CM NOTE CONCURRENT REVIEW FAXED TO [facility] [phone] [facility] PH# [phone] AND TO [facility] [phone] GIGI PH# [phone] VANESSA BAHENA PH# [phone].
[2018-01-03 12:00] VITALS: BP 121/95
--- NOTE | 2018-01-03 14:24 | NUR ---
01/03/18 RD FOLLOW UP COMPLETED PLEASE REFER TO NUTRITION ASSESSMENT UNDER CARE ACTIVITY FOR ESTIMATED NUTRITIONAL NEEDS. 1.CONTINUE VITAL AT 40 ML/HR -THIS WILL PROVIDE 960 ML, 1152 KCAL, 72 GM OF PROTEIN, WHICH MEETS 96% OF ESTIMATED KCAL AND 100% OF ESTIMATED PROTEIN NEEDS. 2. CONTINUE FREE WATER FLUSH AT [address] TO FOLLOW-UP 2-3 DAYS, HIGH RISK ALFA SAENZ RD
[2018-01-03 16:00] VITALS: BP 97/52
--- NOTE | 2018-01-03 18:00 | NUR ---
PT HAD 1X LARGE LOOSE YELLOW BROWN STOOLS NOTED THE ENTIRE SHIFT.
--- NOTE | 2018-01-03 19:30 | NUR ---
PT RESTING. NO SOB NOTED. NO SIGNS OF PAIN. ENDORSED TO NEXT SHIFT NURSE FOR CONTINUITY OF CARE.
--- NOTE | 2018-01-03 19:32 | NUR ---
RECEIVED REPORT FROM DAY SHIFT NURSE. PT LYING IN BED, APHASIC. NO S/S OF PAIN OR SOB. PT ON ROOM AIR. PT HAS MIDLINE TO RIGHT UPPER ARM, 2 LUMENS, NS AT 50 ML/HR INFUSING WELL. G-TUBE IN PLACE WITH FEEDING, INFUSING WELL. PT TOLERATING FEEDING WELL. BECERRIL CATH IN PLACE DRAINING CLEAR YELLOW URINE. PT HAS DRESSING TO LEFT FA, CLEAN, DRY AND INTACT. BLE AND BUE CONTRACTED. FALL, SEIZURE AND ASPIRATION PRECAUTION IN PLACE.
[2018-01-03 20:00] VITALS: BP 135/61
--- NOTE | 2018-01-03 21:46 | NUR ---
CHECKED G-TUBE RESIDUAL 10 ML. DUE MEDS GIVEN. PT TOLERATED WELL. DR. CHEW MADE AWARE OF PT'S PLATELET COUNT 132, PER MD, IT'S OKAY TO GIVE HEPARIN 5000 UNITS SUBQ.
[2018-01-04] VITALS: BP 99/56
--- NOTE | 2018-01-04 | NUR ---
PT TURNED AND REPOSITIONED Q2H. NO S/S OF PAIN OR SOB. PT TOLERATING FEEDING WELL. SAFETY, ASPIRATION AND SEIZURE PRECAUTION IN PLACE.
[2018-01-04] MEDS: VANCOMYCIN 500 MG VIAL GT SCH ×3 (00:21→13:14)
--- NOTE | 2018-01-04 03:40 | NUR ---
STARTED NEW BAG OF FEEDING VITAL AF 1.2 AT 40 ML/HR. ASPIRATION PRECAUTION IN PLACE.
[2018-01-04 04:00] VITALS: BP 106/60
--- NOTE | 2018-01-04 05:00 | NUR ---
PT CLEANED AND CHANGED. TURNED AND REPOSITIONED FOR COMFORT. NO S/S OF PAIN OR SOB. PT TOLERATING FEEDING WELL.
--- NOTE | 2018-01-04 07:20 | NUR ---
ENDORSED PT TO DAY SHIFT NURSE. PT IN STABLE CONDITION.
--- NOTE | 2018-01-04 07:30 | NUR ---
RECEIVED PT ON BED ASLEEP, AROUSABLE, APHASIC, HX MENTAL RETARDATION. NO SOB NOTED. NO SIGNS OF PAIN AT THIS TIME. WITH RT UPPER ARM MID LINE, PATENT, SITE CLEAN, DRESSING DRY AND INTACT. CHEST, DIMINISHED AIR ENTRY TO THE BASES. ABDOMEN SOFT, BOWEL SOUNDS PRESENT. WITH G-TUBE FEEDING, RESIDUALS OF 30 MLS NOTED, PT TOLERATING G-TUBE FEEDING WELL. WITH BECERRIL DRAINING MODERATE AMOUNTS OF CLEAR YELLOW URINE. BILATERAL UPPER AND LOWER EXTREMITIES CONTRACTIONS NOTED, WILL REPOSITION PT EVERY 2 HRS. BED ALARM ON, 3 SIDE RAILS RAISED UP, BED ON LOWEST POSITION. WILL CONTINUE TO MONITOR.
[2018-01-04 08:00] VITALS: BP 105/69
[2018-01-04] MEDS: PHARMACY COMMENTS MC SCH (09:00)
[2018-01-04 09:01] LABS: BASOPHILS % (AUTO) 0.2 % (0.0-2.0); EOSINOPHILS # (AUTO) 0.1 K/uL (0-0.4); EOSINOPHILS % (AUTO) 0.6 % (0.0-4.0); HEMATOCRIT 25.9 % (36-52); HEMOGLOBIN 8.8 g/dL (12.0-18.0); LYMPHOCYTES # (AUTO) 3.2 K/uL (2.0-11.5); LYMPHOCYTES % (AUTO) 21.2 % (20.5-51.1); MEAN CORPUSCULAR HEMOGLOBIN 36 pg (27-31); MEAN CORPUSCULAR HGB CONC 34 g/dL (33-37); MEAN CORPUSCULAR VOLUME 104.4 fL (80-94); MONOCYTES # (AUTO) 0.8 K/uL (0.8-1.0); MONOCYTES % (AUTO) 5.2 % (1.7-9.3); NEUTROPHILS % (AUTO) 72.8 % (42.2-75.2); PLATELET COUNT (AUTO) 134 K/uL (140-450); RED BLOOD CELL COUNT(AUTO) 2.48 MIL/uL (4.20-6.10); RED CELL DISTRIBUTION WIDTH 16.5 % (11.6-13.7); WHITE BLOOD COUNT (AUTO) 15.1 K/uL (4.8-10.8)
[2018-01-04] MEDS ORDERED: VANC125C11 PO (09:25)
[2018-01-04 09:26] LABS: ANION GAP 14.2 (8-16); CARBON DIOXIDE 17.1 mmol/L (21-32); CREATININE 0.6 mg/dL (0.7-1.3); POTASSIUM 3.3 mmol/L (3.5-5.1)
[2018-01-04] MEDS: POTASSIUM CHLORIDE 20% 40 MEQ/15 ML UDC GT SCH (09:28)
[2018-01-04] MEDS: levETIRAcetam 100 MG/ML ORASYR GT SCH (09:28)
[2018-01-04] MEDS: ASCORBIC ACID 500 MG/5 ML ORASYR PEG SCH (09:28)
[2018-01-04] MEDS: METOPROLOL 25 MG TAB PO SCH (09:29)
[2018-01-04] MEDS: SODIUM PHOS / POTASSIUM PHOS 1 PKT PDR PO SCH ×2 (09:29→13:14)
[2018-01-04] MEDS: TOPIRAMATE 100 MG TAB PO SCH (09:29)
[2018-01-04] MEDS: PANTOPRAZOLE 40 MG INJ VIAL IVP SCH (09:30)
[2018-01-04] MEDS: LACTOBACILLUS RHAMNOSUS GG 1 EACH CAP GT SCH (09:30)
[2018-01-04 09:33] LABS: PHOSPHORUS 3.4 mg/dL (2.5-4.9)
[2018-01-04] MEDS ORDERED: METO25TA PO (10:17)
[2018-01-04] MEDS ORDERED: INFLUENZA VIRUS VACCINE QUAD 0.5 ML SYR IMVAC SCH (10:35)
--- NOTE | 2018-01-04 11:00 | NUR ---
CALLED PT'S SISTER GLENDY #[phone] AND INFORMED HER OF PT'S D/C PLAN TODAY. PER GLENDY IF WE CAN HELP HER WITH A GURNEY TRANSPORTATION FOR PT BUT IF NOT OR IF MEDICAL DOES NOT COVER THEN SHE HAS TO PICK HIM UP AND HAVE HIM SIT IN HER CAR. DISCUSSED THE ISSUE WITH DR. RICARDO REGARDING A SAFE TRANSPORTATION. CALLED IAN BARBER STYLIST AND INFORMED HER OF THE ISSUE, STATED SHE WILL LET THE [employer] PLANT OPERATOR KNOW (JB).
--- NOTE | 2018-01-04 11:33 | NUR ---
CALLED PT'S SISTER AGAIN AND INFORMED HER THAT PER [employer]B [employer] DOES NOT COVER PT'S TRANSPORTATION AND IF THEY WANT THEY WANT TO PAY $106,00. GLENDY STATED THEY WON'T BE ABLE TO PAY THE AMOUNT ANT THAT HER MOM AND BROTHER WILL ALTERATIONS SEWER THE PT AROUND 4-4:30 THIS AFTERNOON VIA CAR. Addendum: 01/04/18 at 1137 by Radha Schwartz RN DISREGARD ABOVE NOTES. WRONG ENTRY.
--- NOTE | 2018-01-04 11:36 | NUR ---
CALLED PT'S SISTER AGAIN AND INFORMED HER THAT PER [employer] DOES NOT COVER PT'S TRANSPORTATION AND IF THEY WANT THEY HAVE TO PAY $106,00. GLENDY STATED THEY WON'T BE ABLE TO PAY THE AMOUNT AND THAT HER MOM AND BROTHER WILL MILEAGE CLERK THE PT AROUND 4-4:30 THIS AFTERNOON VIA CAR. Addendum: 01/04/18 at 1139 by Radha Schwartz RN *$106.00* NOT $106,00.
--- NOTE | 2018-01-04 11:39 | NUR ---
CM NOTE GAVE PATIENT'S INSURANCE [employer] JUDY HAYWOOD A VERBAL CLINICAL UPDATE AND INFORMED HER OF THE DC ORDER TODAY. FAXED DC SUMMARY TO [facility] [phone] JUDY HAYWOOD PH# [phone]. PER JUDY HAYWOOD THEY DO NOT PAY OR PROVIDE TRANSPORTATION FOR A PATIENT GOING HOME. PER DANDRE OF [facility], PATIENT/FAMILY RATE FOR GURNEY TRANSPORT FROM [place] TO PATIENT'S ADDRESS [place] [address] [facility] IS ABOUT $106. MANUEL GENAO AWARE.
--- NOTE | 2018-01-04 14:34 | NUR ---
1350 CALLED AND SPOKE WITH PT'S SISTER GLENDY. PER GLENDY SHE IS PATIENTS PRIMARY CAREGIVER. STATED THAT PATIENT IS UNDER [facility] BUT DOES NOT KNOW THE CASE WORKERS NAME OFF HAND. STATED THAT PT IS EVALUATED ANNUALLY BY [facility]. INQUIRED TO HOW FAMILY TRANSPORTS PT TO PHYSICIAN APPTS AND SHE SAID THAT PT DOES HAVE A W/C BUT ALL FAMILY MEMBERS HAVE COMPACT CARS THE W/C DOESN'T FIT. FAMILY LIFT PT INTO A STROLLER TO MANEUVER HIM AROUND AND FOR TRANSPORT THEY LIFT PT INTO THE BACK SEAT OF THE CAR. ADVISED GLENDY TO CONTACT [facility] TO DETERMINE IF HE IS ELIGIBLE FOR ANY OTHER RESOURCES. DISCUSSED WITH HER THAT [facility] DOES OFFER TRANSPORTATION. GLENDY STATED SHE IS AWARE AND THEY DO UTILIZE TRANSPORT AT TIMES BUT IT MUST BE SCHEDULED IN ADVANCE. GLENDY STATED THAT THE FAMILY FIND THAT USING THE STROLLER WORKS BEST SINCE PT IS SMALL AND CAN BE LIFTED EASILY. INSTRUCTED GLENDY THAT IF THEY WOULD LIKE INFORMATION REGARDING OTHER RESOURCES TO CONTACT CM DEPARTMENT AND AGAIN URGED HER TO CONTACT [facility].
--- NOTE | 2018-01-04 15:30 | NUR ---
DISCHARGE PHOTOS TAKEN AND DOCUMENTED. ( LT FA BLISTER AND INCONTINENT DERMATITIS ON SACRAL AREA FROM FREQUENT DIARRHEA)
[2018-01-04 15:46] VITALS: BP 97/60
--- NOTE | 2018-01-04 17:00 | NUR ---
PT'S FAMILY HERE TO BEHAVIOR THERAPIST PT. RT UA MID LINE REMOVED ORDERED, PT TOLERATED PROCEDURE WELL. PRESSURE DRESSING APPLIED. BECERRIL CATHETER REMOVED ORDERED, TOLERATED WELL BY PT WELL. G-TUBE CLAMPED. Addendum: 01/04/18 at 1902 by Radha Schwartz RN RT UA MIDLINE TIP INTACT.
--- NOTE | 2018-01-04 17:25 | NUR ---
DISCHARGE INSTRUCTIONS GIVEN TO PT'S BROTHER WHO SPEAKS [place] AND [place] WELL. VERBALIZED UNDERSTANDING. ARM BANDS REMOVED.
--- NOTE | 2018-01-04 17:40 | NUR ---
PT WHEELED OUT TO THE PARKING IN STABLE CONDITION VIA PT'S OWN ADULT STROLLER TO PT'S BROTHER'S CAR. NO SOB NOTED. NO SIGNS OF PAIN. PT IS D/C HOME WITH FAMILY.
== END 2018-01-04 17:40 | disposition home or self-care (01) | DRG 720 ==
LOC: MED 21:03 → MTU 12-24 03:14
PROVIDERS: ADMIT General Practice; ATTEND General Practice
PROC: 3E0234Z Introduction of Serum, Toxoid and Vaccine into Muscle, Percutaneous Approach (ICD-10-PCS; principal; 2018-01-04)
DX: A41.9 Sepsis, unspecified organism (principal); N17.0 Acute kidney failure with tubular necrosis; J69.0 Pneumonitis due to inhalation of food and vomit; E43 Unspecified severe protein-calorie malnutrition; K85.90 Acute pancreatitis without necrosis or infection, unspecified; A04.72 Enterocolitis due to Clostridium difficile, not specified as recurrent; E87.8 Other disorders of electrolyte and fluid balance, not elsewhere classified; E83.39 Other disorders of phosphorus metabolism; E78.5 Hyperlipidemia, unspecified; E87.1 Hypo-osmolality and hyponatremia; E83.51 Hypocalcemia; Z68.1 Body mass index [BMI] 19.9 or less, adult; G40.909 Epilepsy, unspecified, not intractable, without status epilepticus; D75.89 Other specified diseases of blood and blood-forming organs; K21.9 Gastro-esophageal reflux disease without esophagitis; E83.42 Hypomagnesemia; E87.6 Hypokalemia; G80.9 Cerebral palsy, unspecified; Z88.1 Allergy status to other antibiotic agents; Z79.899 Other long term (current) drug therapy; Z93.1 Gastrostomy status; Z99.3 Dependence on wheelchair; Z88.8 Allergy status to other drugs, medicaments and biological substances; Z23 Encounter for immunization
CPT/HCPCS: 36415; 71045; 74018; 76700; 80048; 80053; 80202; 80305; 81001; 81003; 82150; 82607; 82746; 82948; 83036; 83605; 83615; 83690; 83735; 83880; 84100; 84443; 84484; 85025; 85610; 85730; 87040; 87070; 87081; 87086; 90658; 93005; 94640; 96374; 99285; C1751; C1758; C9113; J1644; J1885; J2060; J2270; J2543; J3370; J3480; J7030; J7042; J7060; J7620; Q0092

== ENCOUNTER → 2022-04-14 05:19 | Emergency (ER) | payer OTHER ==
[~2022-04-14] VITALS: Ht 152.4 cm; Wt 38.1 kg
[~2022-04-14 05:19] MED LIST changes: -ASCO500T45 PEG; -ATI.5 PEG; -DOCU-299 PEG; +KEP500L GT; +LACO100T PO; -LANS15EC28 PEG; -LEVE1000 PEG; -LOV40I SUBQ; +METF-1139 PO; +METO-485 PO; -MIDO10TA PEG; +PRO5 PO; +VALP-22 GT; -VALP-22 PEG; -[UNRECOGNIZED DRUG - CODE] PO
--- NOTE | 2022-04-14 05:20 | NUR ---
0586- [facility] ALS TO BED #9. PT EXAMINED BY DR. REYES. TIME OF CALLED AT 0509
--- NOTE | 2022-04-14 05:36 | NUR ---
[facility] PER NIKITA DIRECTOR TRANSITION WILL GIVE A CALL BACK
--- NOTE | 2022-04-14 05:41 | NUR ---
CALL PLACED TO [facility] CIRA WHO PROVIDED REFERENCE #: [id number]
--- NOTE | 2022-04-14 05:50 | NUR ---
PRIMARY PHYSICIAN CONTACTED THREE TIMES, UNABLE TO REACH PHYSICIAN. PHYSICIAN IS Colton Haro, Jimy Seay
--- NOTE | 2022-04-14 06:00 | NUR ---
SPOKE WITH FAMILY AND ACCEPTING FACILITY/MORTUARY IS [facility].
--- NOTE | 2022-04-14 06:50 | NUR ---
AWAITING CALL BACK FROM [facility]. INFO GATHERED FROM FAMILY REGARDING HOME CONTACT. FAMILY MADE AWARE OF [facility] TO RELEASE BODY IN ORDER FOR FAMILY TO VIEW AND TAKE ANY PERSONAL EFFECTS FROM PT
--- NOTE | 2022-04-14 06:57 | NUR ---
FAMILY IN THE LOBBY
--- NOTE | 2022-04-14 08:08 | NUR ---
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 PER DISPATCH, WILL CALL BACK SOON.
--- NOTE | 2022-04-14 08:30 | NUR ---
GAVE UPDATE TO ANNE WITH [facility]
--- NOTE | 2022-04-14 09:05 | NUR ---
SPOKE WITH BENNETT FROM [facility]. PER BENNETT, PT IS NOT A [employer] CASE
--- NOTE | 2022-04-14 09:18 | NUR ---
SPOKE WITH JOHNIE AT [facility]. PER JOHNIE ETA FOR PT BODY PICKUP IS [phone].
--- NOTE | 2022-04-14 09:18 | NUR ---
CALLED PTS PCP- DR FEDERICO DUPONT. SPOKE WITH FRAMING MECHANIC MICAELA WHO WILL NOTIFY HIM OF .
--- NOTE | 2022-04-14 09:22 | NUR ---
FAXED RELEASE FORM TO JOHNIE AT [facility] AT [phone]
--- NOTE | 2022-04-14 09:52 | NUR ---
GAVE UPDATE ON PT'S STATUS TO JUSTA AT [facility]
--- NOTE | 2022-04-14 11:19 | NUR ---
PT'S BODY TRANSPORTED BY [facility] WITH [facility]. Addendum: 04/14/22 at 1123 by [email or web address] PT'S BODY TRANSPORTED BY [facility] WITH [facility] COSIGNED RELEASE OF BODY WITH KANDICE GENAO
== END ==
LOC: MED 05:19
DX: I46.9 Cardiac arrest, cause unspecified (principal); E11.9 Type 2 diabetes mellitus without complications; Z79.899 Other long term (current) drug therapy; Z79.84 Long term (current) use of oral hypoglycemic drugs; Z88.1 Allergy status to other antibiotic agents
CPT/HCPCS: 99285